=== PATIENT | male | born 1975 | race Caucasian/White ===

== ENCOUNTER 2017-03-17 22:17 | Emergency (ER) | payer OTHER ==
[~2017-03-17] VITALS: Ht 177.8 cm; Wt 125.0 kg
[~2017-03-17 22:17] MED LIST: CEPH-512 PO; GABA600T2 PO; HYDR-3740 PO; OMEP20CA11 PO
[2017-03-17 22:33] VITALS: BP 138/83; PULSE 93; RESP 16; O2SAT 97
--- NOTE | 2017-03-17 23:42 | ED.REPORT ---
HPI-Extremity Problem Upper Date of Service Mar 17, 2017 ED Provider: Nathen Jones DO A 41 year old male with a history of diabetes, neuropathy, sleep apnea and sarcoidosis presents to the ED complaining of right hand pain. The pt dropped plates two days ago and hit his hand against the table trying to catch them. He has since experienced increasing right hand and wrist pain and swelling. The pt also complains of right leg and foot swelling. The swelling is accompanied by a rash on the affected areas. He has been experiencing these symptoms for several weeks and has been seen in the ED and by his PCP. He has been diagnosed with cellulitis and prescribed Vancomycin, Keflex and Clindamycin without significant relief. The pt has been elevating his leg but has not been wearing compression stockings. He recently noticed that his left leg is beginning to appear swollen. The pt denies history of DVT and recently had a negative echocardiogram. He has also been tested with recent LE duplex that returned negative. He has been treated the rash inconsistency with cautious amounts of triamcinolone and has a referral to see dermatology. Nursing Notes Stated Complaint: RT HAND SWELLING, RT/LT LEG SWELLING Chief Complaint: Extremity Trauma Nursing Notes Reviewed: Yes Allergies: Coded Allergies: yellow dye (Verified Allergy, Unknown, 03/17/17) Scheduled Cephalexin (Keflex) 500 Mg Capsule 500 MG PO QID Clobetasol Propionate (Clobetasol Propionate) 15 Gm Oint...g. 60 GM TP BID Gabapentin (Gabapentin) 600 Mg Tablet 1,200 MG PO TID Omeprazole (Omeprazole) 20 Mg Capsule.dr 20 MG PO DAILY Scheduled PRN Hydrocodone-Acetaminophen 10-325 mg (Hydrocodone-Acetaminophen 10-325 mg) 1 Each Tablet 1 TABLET PO Q6H PRN PRN For Pain General Time Seen by MD: 23:08 Chief Complaint Hand injury right Hx Obtained From: Patient Arrived By: Walk-in Onset Occurred: 2 days ago Recent Healthcare: No recent hospitalization, Recent doctor visit Similar Sx Previous: No Past Medical History Past Medical History Diabetes Mellitus Neuropathy Testicular Cancer Sarcoidosis Sleep apnea Past Surgical History None reported Smoking History Current Every Day Smoker Social History Alcohol Use: Denies alcohol use Drug Use: THC Other Social History: Good social support, From out of town Ambulatory Status Independent Review of Systems Musculoskeletal: Reports: Extremity pain, Extremity swelling, Denies: Neck pain Skin: Reports Rash Complete sys rev & neg: except as marked. Respiratory: Denies: Non-productive cough, Shortness of breath Cardiovascular: Denies: Chest pain GI: Denies: Abdominal pain, Nausea, Vomiting Physical Exam Initial Vital Signs Vital Signs (First) Date Time Temp Pulse Resp B/P Pulse Ox O2 Delivery O2 Flow Rate FiO2 03/17/17 22:33 37.1 93 16 138/83 97 Room Air Initial VS: Reviewed General/Constitutional: Awake, Alert Neck: Atraumatic, Supple, Full range of motion Respiratory / Chest: Atraumatic, Breath sounds NL, Breath sounds = bilat, No respiratory distress Cardiovascular: Heart rate NL, Regular rhythm, Heart sounds NL Upper Extremity / MS: Atraumatic, Full range of motion Wrist / Hand: Atraumatic, Full range of motion Skin: Atraumatic, Color NL, Warm, Dry Rash / Lesion Notes: thickened patches of skin, dry and flakey on erythemetous base over bilateral lower extremites. 1+pitting edema bilaterally. No areas of drainage, tenderness or warmth. No obvious evidence of cellulitis. Neurologic: Oriented X3, Speech NL, No motor deficits, No sensory deficits Head / Eyes: Atraumatic, Normocephalic, PERRL, EOMI ENT: Atraumatic, Airway patent, Mucous membranes moist Abdomen: Atraumatic, Soft, Non-tender Back: Atraumatic, Full range of motion Lower Extremity / Pelvis / MS: Atraumatic, Full range of motion Psychiatric: Affect NL, Mood NL Interpretation & Diagnostics X-Ray Interpretation Xray Interpretation: minimally displaced boxer's fracture at base of fifth metacarpal X-Ray Ordered: Hand right Interpretation / Wet Read by: Interpret - ED physician Xray Interpretation: minimally displaced boxer's fracture at base of fifth metacarpal X-Ray Ordered: Wrist right Interpretation / Wet Read by: Interpret - ED physician Procedures Splint Application - Fx Mgt Time: 23:50 Procedure Performed by: ED physician, Pick Out Hand, Under my direct supervis Precise Anatomic Location: right hand/wrist Type of Immobilization: Ulnar gutter Definitive Fracture Care: Splint Post-Procedure / Complications: Cap refill normal, Post splint vascular nl, Post splint neuro nl, Condition improved, Tolerated procedure well, Patient stable Re-Eval/Medical Decision Med Decision/Clinical Course Boxers fracture with routine splint and ortho referral as above. I do not believe his exam is consistent with cellulitis but rather psoriasis or eczematous condition. Stronger steroid rx (clobetasol) given with instructions to f/u with pcp next week. Also advised him okay to use generously with occlusive dressing as long as not used more than 2 weeks at a time. Compression stocking also encouraged to combat the swelling. Source of Hx: Old records Re-Evaluation/Progress : Time of Eval: 23:55 Patient Status: Condition improved Re-Evaluation/Progress Note: Pt rechecked, who is resting comfortably. Radiology results, diagnosis and plan for discharge are discussed. The pt understands and agrees with the plan. All questions are addressed at this time. Counseled Regarding: Diagnosis, Lab results, Need for follow-up, When/why to return to ED Discharge & Departure Impression: Primary Impression: Boxer's fracture Encounter type: initial encounter Fracture type: closed Qualified Code: S62.309A - Unspecified fracture of unspecified metacarpal bone, initial encounter for closed fracture Additional Impression: Dermatitis of lower extremity Disposition: Home Discharge Condition All VS Reviewed: Yes Condition: Stable Patient Instructions: Boxer Fracture (ED), Dermatitis (ED), Splint Care (ED) Additional Instructions: Thank you for allowing us to be a part of your care. Take your hydrocodone as directed for pain. Wear the splint until you are seen in follow up. Call orthopedics in the morning to arrange a follow up appointment next week. Apply the steroid cream generously twice daily for two weeks. Call your primary care physician to arrange a follow up appointment next week. Return to the emergency department if you develop any new or worsening symptoms. Referrals: Jolanta Tobin DO (PCP) Abdoul Garcia DO Scribe Attestation Portions of this note were transcribed by Su Wood. I, Dr. Jones personally performed the history, physical exam and medical decision-making; I reviewed and confirmed the accuracy of the information in the transcribed note. copies to: Abdoul Garcia DO; Jolanta Tobin Gary R DO Mar 17, 2017 23:41 SU WOOD Mar 17, 2017 23:54
[2017-03-18] MEDS ORDERED: CLOB15OI2 TP (00:05)
--- NOTE | 2017-03-18 07:36 | DRSVH ---
PROCEDURE: X-RAY RIGHT WRIST COMPLETE, MINIMUM THREE VIEWS ([id number]) INDICATIONS: 41-year-old male with ulnar-sided wrist pain after injury yesterday. TECHNIQUE: 4 views of the wrist were acquired. COMPARISON: None. FINDINGS: Bones: There is cortical irregularity of the fifth metacarpal base. Other bones appear intact. No rondon spicious bony lesions. Scaphoid view: Scaphoid appears intact. Soft tissues: No suspicious soft tissue calcifications. IMPRESSION: Findings suspicious for a mildly displaced fifth metacarpal base fracture. Dictated by: Max Soto M.D. on 03/18/2017 at 7:32 Approved by: Max Soto M.D. on 03/18/2017 at 7:33
--- NOTE | 2017-03-18 07:38 | DRSVH ---
PROCEDURE: X-RAY RIGHT HAND, MINIMUM THREE VIEWS ([id number]) INDICATIONS: 41 year-old male with right hand and wrist injury yesterday. TECHNIQUE: 4 views of the hand(s) acquired. COMPARISON: [facility], CR, XR WRIST 3VW RT, 03/17/2017, 22:52. FINDINGS: Bones: There is mildly displaced oblique intra-articular fracture of the fifth metacarpal base. Other bones appear intact. Carpal bones are normally aligned. No suspicious bony lesions. Soft tissues: No suspicious soft tissue calcifications. IMPRESSION: Mildly displaced oblique intra-articular fracture of the fifth metacarpal base. Dictated by: Max Soto M.D. on 03/18/2017 at 7:34 Approved by: Max Soto M.D. on 03/18/2017 at 7:35
[2017-03-23] MEDS ORDERED: HYDR-3740 PO (15:16)
[2017-03-23] MEDS ORDERED: ALBU8.5H2 INHALATION (15:16)
[2017-03-23] MEDS ORDERED: humalog (15:16)
[2017-03-23] MEDS ORDERED: LACT70CA PO (15:30)
[2017-03-23] MEDS ORDERED: L. A1CAP7 PO (15:30)
== END 2017-03-18 01:35 | disposition home or self-care (01) ==
LOC: SED 22:23
DX: S62.312A Displaced fracture of base of third metacarpal bone, right hand, initial encounter for closed fracture (principal); L30.9 Dermatitis, unspecified; W22.8XXA Striking against or struck by other objects, initial encounter; Y93.9 Activity, unspecified; Y92.9 Unspecified place or not applicable; Y99.8 Other external cause status; E11.40 Type 2 diabetes mellitus with diabetic neuropathy, unspecified; Z85.47 Personal history of malignant neoplasm of testis; F17.200 Nicotine dependence, unspecified, uncomplicated

== ENCOUNTER 2017-03-29 10:02 | Day surgery (SDC) | payer OTHER ==
[2017-03-29] VITALS (9 sets, daily range): BP systolic 112–139; BP diastolic 55–90; PULSE 70–96; RESP 14–18; O2SAT 92–99
[~2017-03-29] VITALS: Ht 180.3 cm; Wt 122.9 kg
[~2017-03-29 10:02] MED LIST changes: +ALBU8.5H2 INHALATION; -CEPH-512 PO; +CeFAZolin 2 Gm/50 mL D5W IV Premix IV ONE; +L. A1CAP7 PO; +Lactated Ringer's 1,000 ML IV SCH; +humalog
[2017-03-29] MEDS ORDERED: EPHEDrine/NS 5 mg/mL 5 mL Syringe ONE (10:03)
[2017-03-29] MEDS ORDERED: HYDROmorphone 1 mg/mL Inj ONE (10:03)
[2017-03-29] MEDS ORDERED: Lidocaine PF 1% 30 mL Inj ONE (10:03)
[2017-03-29] MEDS ORDERED: fentaNYL-PF 50 mCg/mL 2 mL Inj ONE (10:03)
[2017-03-29] MEDS ORDERED: Ondansetron 2 mg/mL 2 mL Inj ONE (10:03)
[2017-03-29] MEDS ORDERED: MetoCLOpramide 5 mg/mL 2 mL Inj ONE (10:03)
[2017-03-29] MEDS ORDERED: Phenylephrine/NS 100 mCg/mL 10 mL Syringe IVPUSH ONE (10:03)
[2017-03-29] MEDS ORDERED: Propofol 10,000 mCg/mL 20 mL Inj ONE (10:03)
[2017-03-29] MEDS ORDERED: Lactated Ringer's 1,000 ML IV ONE ×2 (11:00→13:43)
[2017-03-29] MEDS ORDERED: CeFAZolin 2 Gm/50 mL D5W Duplex Bag IV ONE (11:16)
[2017-03-29] MEDS ORDERED: oxyCODONE-Acetamin 5-325 mg Tablet PO PRN (11:20)
[2017-03-29] MEDS ORDERED: Lidocaine 1%-Epi 1:100,000 20 mL Inj INJ ONE (11:54)
[2017-03-29] MEDS ORDERED: Lactated Ringer's 500 ML IV PRN (12:03)
[2017-03-29] MEDS ORDERED: Lactated Ringer's 1,000 ML IV SCH (12:03)
--- NOTE | 2017-03-29 12:03 | PCM.HPANE ---
Patient Data Surgeon Admitting Provider: Attending Provider:Wilmer Munroe DO Primary Care Physician:Jolanta Tobin DO Other Provider:Dominguez Valentino Anesthesia Reason for Visit Right 5TH Metacarpal Base Fracture Ht/WT & BMI Height (Feet): 5 Height (Inches): 10 Weight (Kilograms): 124.6 Body Mass Index 39.00 Allergies Coded Allergies: yellow dye (Verified Allergy, Severe, Yellow dye in pills causes hives and rash, 03/23/17) Past Anesthesia History Anesthesia History: Denies:: Abnormal Airway, Anesthesia Reactions, Difficult Intubation, Fam Anesthesia Reaction, Fam Malignant Hypertherm, Malignant Hyperthermia Diabetes History Hx Diabetes?: Yes Type of Diabetes: Type II Glycemic Control: Insulin Dependent MRSA MRSA: No Medications Reported Medications L. Acidophilus/Bifid. Animalis (Probiotic 5 Billion Cell Cap)1 Each Cap.[email or web address] Each PO 03/23/17 Albuterol HFA (Proair HFA)8.5 Gm Hfa.aer.ad2 Puffs INHALATION Q4H #1 INHALER 03/23/17 Hydrocodone-Acetaminophen 10-325 mg 1 Each Tablet1 Tablet PO Q6H PRN For Pain Ref 0 03/23/17 [humalog ] 70/30 No Conflict CheckUnknown Dose BID PRN blood glucose 03/23/17 Omeprazole 20 Mg Capsule.dr20 Mg PO DAILY Ref 0 01/21/17 Gabapentin 600 Mg Tablet1,200 Mg PO TID Ref 0 01/21/17 Discontinued Reported Medications Lactobac No.41/Bifidobact No.7 (Probiotic-10 3 Billion Cell Cp)70 Mg (3 Billion Cell) [id number] Mg PO 03/23/17 Hydrocodone-Acetaminophen 10-325 mg 1 Each Tablet1 Tablet PO Q6H PRN For Pain Ref 0 03/23/17 Hydrocodone-Acetaminophen 10-325 mg 1 Each Tablet1 Tablet PO Q6H PRN For Pain Ref 0 01/21/17 Discontinued Scripts Clobetasol Propionate 15 Gm Oint...g.60 Gm TP BID #4 TUBE Prov:Nathen Jones DO 03/18/17 Cephalexin (Keflex)500 Mg [id number] Mg PO QID #40 CAPSULE Ref 0 Prov:Abdoul Ramos DO 01/21/17 History History of ENT Problems?: No HEENT History: Denies:: Abnormal Airway Cataracts Difficult Intubation Dysphagia Glaucoma Hearing Problem Sinus Problem TMJ Denture Type: None Teeth Condition: Within Normal Limits Hx of Heart Problems?: No Cardiovascular History: Positive for:: Edema (ankles) Denies:: Abdominal Aortic Aneurism Atrial Fibrillation Cardiac Surgery Chest Pain Congestive Heart Failure Coronary Artery Disease Heart Murmur Hypertension Irregular Heartbeat Peripheral Vascular Rheumatic Fever Thrombophlebitis Valvular Heart Disease Hx of Respiratory Problem?: Yes Respiratory History: Positive for:: Asthma Pneumonia (2016) Use of Inhalers / NEBS (Albuterol) Denies:: COPD Chest Surgery Cough Dyspnea Emphysema Hemoptysis Pulmonary Embolism Tuberculosis Use of C-PAP Machine Hx Neurologic Problems?: Yes Neurological History: Positive for:: Dizziness Headaches Denies:: Alzheimer's Disease CVA Dementia Multiple Sclerosis Parkinson's Disease Seizures TIA Hx of GI Problems?: Yes Hx of Problems?: No Male Hx: Positive for:: Testicular Surgery (testicular cancer) Denies:: Prostate Problems Scrotal Mass Skin History: Positive for:: History Skin Disorders? (leaking rash pososibly from Sarcoidosis) Denies:: Pressure Ulcers Hx Musculoskeletal Problems?: No Musculoskeletal History: Positive for:: Back Injury (three lower back disc missing since ) Fibromyalgia Denies:: Degenerative Joint Joint Replacement Musculoskeletal Trauma Myasthenia Gravis Osteoarthritis Rheumatoid Arthritis Systemic Lupus Hx of Psycho/Social Problems?: No Hx Surgeries?: Yes (Testicular surgery) Hx Any Other Health Problems?: Yes Other History: Positive for:: Cancer (testiclular) Hospitalization (01/21/17 dizzyness and fever) Thyroid Disease (has allergies to thyroid meds) History Blood Transfusions: Positive for:: Accept Blood Products? Denies:: Blood Transfuse Reaction Blood Transfusions Hx Diabetes: Yes Hx Alcohol Use: NoHx Substance Use: Yes (CBD pill for pain control) Smoking Status: Current Every Day Smoker Have You Smoked inLast 12 mo: YesApprox How Many Cigarettes/day: 10 Stop/Bang S-Snoring: Do You Snore Loudly: Yes T-Tired: feel tired, fatigued: No O-Obsered: Observed not breath: No P-Blood Pressure: treated: No B- Body Mass Index > 35 kg/m2: Yes A- Age over 50: No N- Neck Large Circumference: Yes G- Gender Male: Yes CRYS Total Score: 4 CRYS Risk Assessment: High Risk, =/>3 Yes CRYS Category 4 OutPt Procedure: Yes Risk Assessment Category Category 1A: Patient has history of documented sleep apnea, and HAS NOT received any narcotic, sedative or anesthesia administration during this stay. Category 1B: Patient has history of documented sleep apnea, and HAS received any narcotic , sedative or anesthesia administration during this stay Category 2: Patient has SUSPECTED Obstructive Sleep Apnea, and HAS received any narcotic , sedative or anesthesia administration during this stay. Category 3: Patient has SUSPECTED Obstructive Sleep Apnea and HAS NOT received narcotic, sedative or anesthesia administration during this stay. Category 4: Outpatient in Procedural Areas with known sleep apnea or who screen positive for High Risk via the STOP/BANG questionnaire. Exam Exam General Appearance: Alert HEENT/AIRWAY: MP 3, Neck Movement (from, 3 fb) Lungs: Clear to Auscultation Heart: Regular Rate/Rhythm Plan Impression Patient chart reviewed, patient interviewed and anesthestic plan with risks, benefits, and alternatives discussed, and informed consent obtained. NPO per Anesth. Guidelines: Yes ASA Physical Status: ASA2 Mod Systemic Disease Anesthetic Plan: GA Bene/Risks/Altern/Consents: Yes HP Complete Prior to Induction: Yes Anish Lee MD Mar 29, 2017 10:01
[2017-03-29] MEDS ORDERED: Phenylephrine 10,000 mCg/mL Inj IVPUSH PRN (12:05)
[2017-03-29] MEDS ORDERED: EPHEDrine Sulfate 50 mg/mL Inj IVPUSH PRN (12:05)
[2017-03-29] MEDS ORDERED: HYDROmorphone 1 mg/mL Inj IVPUSH PRN (12:05)
[2017-03-29] MEDS ORDERED: MetoCLOpramide 5 mg/mL 2 mL Inj IVPUSH PRN (12:05)
[2017-03-29] MEDS ORDERED: Ondansetron 2 mg/mL 2 mL Inj IVPUSH PRN (12:05)
[2017-03-29] MEDS ORDERED: Dexamethasone 4 mg/mL Inj IVPUSH PRN (12:05)
[2017-03-29] MEDS ORDERED: fentaNYL-PF 50 mCg/mL 2 mL Inj IVPUSH PRN (12:05)
--- NOTE | 2017-03-29 13:46 | OP ---
[address] [id number] OPERATIVE REPORT PATIENT: HARSHAD FALLON : 1975 MR#: [id number] ADMIT: 03/29/2017 JOB ID: [id number] DATE OF SURGERY: 03/29/2017 PREOPERATIVE DIAGNOSIS(ES): Right 5th metacarpal base fracture. POSTOPERATIVE DIAGNOSIS(ES): Right 5th metacarpal base fracture. PROCEDURE: Open reduction, internal fixation right 5th metacarpal base fracture. SURGEON: Wilmer Munroe D.O. ANESTHESIA: General. HISTORY: The patient is a pleasant 41-year-old male that dropped a pile of plates and tried to reach down to grab it and instead punched the table. He immediately had pain and swelling to the hand, was seen at an outlying facility. He was diagnosed with a right 5th metacarpal base intra-articular displaced fracture. Repeat radiographs were obtained at his first followup with me, demonstrated further displacement of the dorsal radial fragment likely from the pull of the extensor carpi ulnaris. Due to displacement I discussed with the patient the risks, benefits, and indications to proceed with an open reduction internal fixation right 5th metacarpal base fracture. He understood the risks include, but not limited to, neurovascular injury, tendon injury, infection, failure of fixation, stiffness, persistent pain, all of which may require further intervention. The patient had all questions answered. Consent was signed and placed in the chart. PROCEDURE IN DETAIL: The patient was brought to the operative suite and placed supine on the operating table. Surgical time-out was performed. Everyone in the room was in agreement. After appropriate anesthesia was obtained, the right upper arm tourniquet was applied and the right upper extremity was prepped and draped in a sterile fashion. Right upper extremity was exsanguinated and tourniquet inflated to 250 mmHg. A longitudinal incision was made just radial to the 5th metacarpal extending proximal from the shaft to the 5th CMC joint. Dissection was carried down to the extensor tendons and the extensor tendons including the common digiti minimi were retracted radially. The periosteum was then incised revealing the comminuted intra-articular 5th metacarpal base fracture. Utilizing K-wires, the fracture was then manually reduced and held provisionally. This was followed by application of a 2.0 mm Synthes short T plate. The plate was first affixed utilizing a nonlocking screw within an oblong hole of the plate to pull the plate to the dorsal cortex of the 5th metacarpal. Locking screws were used to capture the two main fracture fragments that were intra-articular including the fragment that was displaced by the extensor carpi ulnaris pull. Completion of fixation was performed in the shaft utilizing a combination of locking and nonlocking screws. A 2-0 Vicryl was placed through the extensor carpi ulnaris to further add additional fixation of the dorsal ulnar fragment and sutured to the plate. Further irrigation was performed followed by closure of the periosteum with 4-0 Vicryl and a running 4-0 nylon for the skin. The patient was then placed in a well-padded, well-molded ulnar gutter splint. ESTIMATED BLOOD LOSS: Less than 1 cc. COMPLICATIONS: None. DISPOSITION: The patient tolerated the procedure well. Anesthesia was reversed. The patient was transferred to the PACU for recovery. IMPLANTS: A 2.0 mm Synthes short T plate from a modular locking handset. POSTOPERATIVE PLAN: The patient will followup with occupational therapy to be transitioned into an ulnar gutter brace. He is to then start working on gentle range of motion of the hand. His followup is in two weeks in my office for suture removal and for repeat radiographs.
--- NOTE | 2017-03-29 13:47 | PCM.ANEP1 ---
Post Anesthesia PACU Phase 1 Assessment Vital Signs Vital Signs Date Time Temp Pulse Resp B/P Pulse Ox O2 Delivery O2 Flow Rate FiO2 03/29/17 13:30 92 18 117/55 92 Room Air 03/29/17 13:15 95 14 121/62 93 Room Air 03/29/17 13:10 96 15 134/73 92 Room Air 03/29/17 13:05 36.5 88 14 112/63 94 Room Air 03/29/17 11:00 36.2 82 18 139/90 99 Room Air Anesthetic Administered: GA Level of Alertness: Awake, talking LADD's with Equal Strength: Yes Pain: No Nausea or Vomiting: No CV Function & Hydration Stable: Yes Airway Device: Oxygen Delivery: Simple Mask Lungs: Clear to Auscultation Dermatome Level: Full Sensation PACU Phase 2 Assessment Complications: No Follow up Care: N/A Patient Instructions Provided: N/A Anish Lee MD Mar 29, 2017 13:47
== END 2017-03-29 23:59 | disposition home or self-care (01) ==
LOC: SAS 10:02
PROVIDERS: ATTEND Orthopaedic Surgery
DX: S62.316A Displaced fracture of base of fifth metacarpal bone, right hand, initial encounter for closed fracture (principal); R60.9 Edema, unspecified; J45.909 Unspecified asthma, uncomplicated; R42 Dizziness and giddiness; R51 Headache; M79.7 Fibromyalgia; F17.210 Nicotine dependence, cigarettes, uncomplicated; W22.8XXA Striking against or struck by other objects, initial encounter; Y93.9 Activity, unspecified; Y92.020 Kitchen in mobile home as the place of occurrence of the external cause; Y99.9 Unspecified external cause status; Z79.899 Other long term (current) drug therapy
CPT/HCPCS: 26615; 76000; C1713; J0690; J1170; J2370; J2405; J2704; J2765; J3010; J7120

== ENCOUNTER → 2017-04-19 | Day surgery (SDC) | payer OTHER ==
[~2017-04-19] VITALS: Ht 177.8 cm; Wt 125.0 kg
[2017-04-19] VITALS (11 sets, daily range): BP systolic 105–130; BP diastolic 64–80; PULSE 82–93; RESP 9–16; O2SAT 92–96
[~2017-04-19] MED LIST changes: +Albuterol-Ipratropium 3 mL Inhalation Solution NEB PRN; +Atropine 0.4 mg/mL Inj IVPUSH PRN; +CEPH-512 PO; +CLIN-77 PO; -CeFAZolin 2 Gm/50 mL D5W IV Premix IV ONE; +CeFAZolin Inj 3 GM in IV Premix 1 EACH IV ONE; +Dexamethasone 4 mg/mL Inj ONE; +EPHEDrine Sulfate 50 mg/mL Inj IVPUSH PRN; +EPHEDrine/NS 5 mg/mL 5 mL Syringe ONE; +HYDROmorphone 1 mg/mL Inj IVPUSH PRN; +Labetalol 5 mg/mL 20 mL Inj IV PRN; +Lactated Ringer's 1,000 ML IV ONE; +Lactated Ringer's 500 ML IV PRN; +Lidocaine 1%-Epi 1:100,000 20 mL Inj INFILTRATE ONE; +MetoCLOpramide 5 mg/mL 2 mL Inj IVPUSH PRN; +OXYC-465 PO; +Ondansetron 2 mg/mL 2 mL Inj IVPUSH PRN; +Ondansetron 2 mg/mL 2 mL Inj ONE; +Phenylephrine 10,000 mCg/mL Inj IVPUSH PRN; +Phenylephrine 10,000 mCg/mL Inj ONE; +fentaNYL-PF 50 mCg/mL 2 mL Inj IVPUSH PRN; +fentaNYL-PF 50 mCg/mL 2 mL Inj ONE; +oxyCODONE-Acetamin 5-325 mg Tablet PO PRN
--- NOTE | 2017-04-19 11:52 | PCM.HPANE ---
Patient Data Surgeon Admitting Provider: Attending Provider:Wilmer Munroe DO Primary Care Physician:Jolanta Tobin DO Other Provider:Dominguez Valentino Anesthesia Reason for Visit Right 5TH Metacarpal Base Fx,Hardware Failure Ht/WT & BMI Height (Feet): 5 Height (Inches): 10 Weight (Kilograms): 125 Body Mass Index 39.00 Allergies Coded Allergies: yellow dye (Verified Allergy, Severe, Yellow dye in pills causes hives and rash, 03/23/17) Past Anesthesia History Anesthesia History: Denies:: Abnormal Airway, Anesthesia Reactions, Difficult Intubation, Fam Anesthesia Reaction, Fam Malignant Hypertherm, Malignant Hyperthermia Diabetes History Hx Diabetes?: Yes Type of Diabetes: Type II Glycemic Control: Insulin Dependent MRSA MRSA: No Medications Home Meds Incl Beta Breanne: No Reported Medications L. Acidophilus/Bifid. Animalis (Probiotic 5 Billion Cell Cap)1 Each Cap.sprink2 Each PO 03/23/17 Albuterol HFA (Proair HFA)8.5 Gm Hfa.aer.ad2 Puffs INHALATION Q4H #1 INHALER 03/23/17 Hydrocodone-Acetaminophen 10-325 mg 1 Each Tablet1 Tablet PO Q6H PRN For Pain Ref 0 03/23/17 [humalog ] 70/30 No Conflict CheckUnknown Dose BID PRN blood glucose 03/23/17 Omeprazole 20 Mg Capsule.dr20 Mg PO DAILY Ref 0 01/21/17 Gabapentin 600 Mg Tablet1,200 Mg PO TID Ref 0 01/21/17 History History of ENT Problems?: No HEENT History: Denies:: Abnormal Airway Cataracts Difficult Intubation Dysphagia Hearing Problem Sinus Problem TMJ Denture Type: None Teeth Condition: Missing Teeth Hx of Heart Problems?: No Cardiovascular History: Positive for:: Edema (ankles) Denies:: Abdominal Aortic Aneurism Atrial Fibrillation Cardiac Surgery Chest Pain Congestive Heart Failure Heart Murmur Hypertension Irregular Heartbeat Rheumatic Fever Thrombophlebitis Valvular Heart Disease Hx of Respiratory Problem?: Yes Respiratory History: Positive for:: Asthma Pneumonia (2016) Denies:: COPD Chest Surgery Cough Dyspnea Emphysema Hemoptysis Pulmonary Embolism Tuberculosis Use of C-PAP Machine Hx Neurologic Problems?: Yes Neurological History: Positive for:: Dizziness Headaches Denies:: Alzheimer's Disease CVA Dementia Multiple Sclerosis Parkinson's Disease Seizures Hx of GI Problems?: Yes Hx of Problems?: No Male Hx: Positive for:: Testicular Surgery (testicular cancer) Denies:: Prostate Problems Scrotal Mass Skin History: Positive for:: History Skin Disorders? (leaking rash pososibly from Sarcoidosis) Denies:: Pressure Ulcers Hx Musculoskeletal Problems?: No Musculoskeletal History: Positive for:: Back Injury (three lower back disc missing since ) Denies:: Degenerative Joint Joint Replacement Musculoskeletal Trauma (hardware failure right metacarpal fx- admission problem) Systemic Lupus Hx of Psycho/Social Problems?: No Hx Surgeries?: Yes (Testicular surgery) Hx Any Other Health Problems?: Yes Other History: Positive for:: Cancer (testiclular) Hospitalization (01/21/17 dizzyness and fever) Thyroid Disease (has allergies to thyroid meds) History Blood Transfusions: Denies:: Blood Transfuse Reaction Blood Transfusions Hx Diabetes: Yes Hx Alcohol Use: NoHx Substance Use: Yes (CBD pill for pain control) Smoking Status: Current Every Day Smoker Have You Smoked inLast 12 mo: Yes Stop/Bang S-Snoring: Do You Snore Loudly: Yes T-Tired: feel tired, fatigued: No O-Obsered: Observed not breath: No P-Blood Pressure: treated: No B- Body Mass Index > 35 kg/m2: Yes A- Age over 50: No N- Neck Large Circumference: Yes G- Gender Male: Yes CRYS Total Score: 4 Risk Assessment Category Category 1A: Patient has history of documented sleep apnea, and HAS NOT received any narcotic, sedative or anesthesia administration during this stay. Category 1B: Patient has history of documented sleep apnea, and HAS received any narcotic , sedative or anesthesia administration during this stay Category 2: Patient has SUSPECTED Obstructive Sleep Apnea, and HAS received any narcotic , sedative or anesthesia administration during this stay. Category 3: Patient has SUSPECTED Obstructive Sleep Apnea and HAS NOT received narcotic, sedative or anesthesia administration during this stay. Category 4: Outpatient in Procedural Areas with known sleep apnea or who screen positive for High Risk via the STOP/BANG questionnaire. Exam Exam Vital Signs Vital Signs Date Time Temp Pulse Resp B/P Pulse Ox O2 Delivery O2 Flow Rate FiO2 04/19/17 10:12 36.6 82 16 130/80 96 Room Air General Appearance: Alert, Oriented X3, Cooperative, No Acute Distress HEENT/AIRWAY: MP 2, Neck Movement (FROM), Mouth Opening (3 FBMO) Lungs: Clear to Auscultation, Normal Air Movement Heart: Exam Unremarkable, Regular Rate/Rhythm, No Murmurs/Rubs/Gallops Meds/Labs/Diagnostics Admission Meds Current Medications Lactated Ringer's (Lr) 1,000 ml @ ud STK-MED ONCE IV Last administered on 04/19t 10:17; Start 04/19/17 at 10:17; Stop 04/19/17 at 10:18; Status DC Plan Impression Patient chart reviewed, patient interviewed and anesthestic plan with risks, benefits, and alternatives discussed, and informed consent obtained. NPO per Anesth. Guidelines: Yes ASA Physical Status: ASA2 Mod Systemic Disease Anesthetic Plan: GA Bene/Risks/Altern/Consents: Yes HP Complete Prior to Induction: Yes Abdoul Bravo MD Apr 19, 2017 10:48
--- NOTE | 2017-04-19 18:21 | PCM.ANEP1 ---
Post Anesthesia PACU Phase 1 Assessment Vital Signs Vital Signs Date Time Temp Pulse Resp B/P Pulse Ox O2 Delivery O2 Flow Rate FiO2 04/19/17 14:00 87 16 105/71 93 Room Air 04/19/17 13:49 88 16 112/67 96 Room Air 04/19/17 13:40 90 12 115/66 94 Room Air 04/19/17 13:30 36.6 91 14 106/68 95 Room Air 04/19/17 13:25 91 12 115/69 93 Room Air 04/19/17 13:15 91 11 118/69 96 Blow-By 04/19/17 13:10 92 14 122/69 96 Blow-By 04/19/17 13:05 93 12 120/65 94 Blow-By 04/19/17 13:00 93 16 115/64 92 Room Air 04/19/17 12:58 36.6 92 9 117/66 92 Room Air Anesthetic Administered: GA Level of Alertness: Awake, talking LADD's with Equal Strength: Yes Pain: No Nausea or Vomiting: No CV Function & Hydration Stable: Yes Airway Device: na Oxygen Delivery: Room Air Lungs: Clear to Auscultation, Normal Air Movement Dermatome Level: Full Sensation PACU Phase 2 Assessment Complications: No Follow up Care: N/A Patient Instructions Provided: N/A Abdoul Bravo MD Apr 19, 2017 18:21
--- NOTE | 2017-04-20 08:00 | OP ---
[address] [address] OPERATIVE REPORT PATIENT: HARSHAD FALLON : 1975 MR#: [id number] ADMIT: 04/19/2017 JOB ID: [id number] DATE OF SURGERY: 04/19/2017 PREOPERATIVE DIAGNOSIS(ES): Failure of hardware fixation for a right fifth metacarpal intra-articular base fracture. POSTOPERATIVE DIAGNOSIS(ES): Failure of hardware fixation for a right fifth metacarpal intra-articular base fracture. PROCEDURE: 1. Revision open reduction and internal fixation of a right fifth metacarpal intra-articular base fracture. 2. Removal of deep hardware, consisting of a screw. SURGEON: Wilmer Munroe DO ANESTHESIA: General. 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 I discussed with the patient the risks, benefits, alternatives, and indications to proceed with open reduction and internal fixation of a right intra-articular fifth metacarpal base fracture. He underwent fixation about two and half weeks ago, and presented to his first followup with hardware failure, as the screw within the plate on the most proximal and ulnar fragment had backed out, and the fracture fragment had further displaced, he was seen by Tyson Gauthier PA-C, and then referred back to me for further evaluation and treatment. I discussed with the patient, due to the re-displacement, the risks, benefits, alternatives, and indications to proceed with a revision open reduction and internal fixation of the right fifth metacarpal-base fracture, with the possibility of hardware removal of the entire plate and revision versus just removing the screw, replacing the screw, and adding additional fixation with K-wires. He understood the risks to include, but not limited to, neurovascular injury, tendon injury, infection, failure of fixation, stiffness, or persistent pain, all of which may require further intervention. The patient had all questions answered. Consent was signed and placed in the chart. PROCEDURE IN DETAIL: The patient was brought to the operative suite and placed supine on the operating table. Surgical time-out was performed. Everyone in the room was in agreement. After appropriate anesthesia was obtained, a right upper arm tourniquet was applied, and the right upper extremity was prepped and draped in a sterile fashion. Right upper extremity was then exsanguinated, and tourniquet inflated to 250 mmHg. The patient's previous incision was approached. Dissection was carried down to the dorsal extensor tendons to the small fingers, which were retracted radially. The periosteum was incised and again elevated off of the plate. The fracture was well-visualized, and the loose screw was easily removed. Manual reduction was performed to the proximal ulnar-based fragment of the fifth metacarpal base utilizing [id number] reduction forceps. The fracture fragment was small; thus, the decision was made to hold the reduction with K-wires. One 0.035 and two 0.045 inch K-wires were advanced across the fracture fragment, into the fifth metacarpal shaft with the 0.035 inch K-wire. The 0.045 inch K-wire was advanced into the fourth metacarpal base and shaft for transmetacarpal pinning and additional fixation. With the fracture fragment reduced and verified under fluoroscopy, a new screw was placed after re-drilling, and a locking screw was placed within the proximal ulnar aspect of the plate. Final radiographic projections were obtained, verifying anatomic reduction and appropriate placement of the hardware. The K-wires were bent outside the skin and cut short. Copious irrigation was then performed. The periosteum closed back up with 4-0 Vicryl, and 4-0 Prolene was utilized in an interrupted fashion for the skin, as the patient had a little bit of a reaction with the previous nylon from his initial surgery. The patient was then placed into a well-padded, well-molded ulnar gutter splint. ESTIMATED BLOOD LOSS: Less than 5 cc. COMPLICATIONS: None. DISPOSITION: The patient tolerated the procedure well, anesthesia was reversed, and the patient was transferred back to recovery. SPECIMENS: A 10 mm screw that was removed and disposed of. IMPLANTS: One 0.035 inch K-wire and two 0.045 inch K-wires, with a new 10 mm screw placed back within the plate. POSTOPERATIVE PLAN: The patient will follow up with Occupational Therapy next week, and have his previous brace changed out so it is a short-arm brace, instead of an ulnar gutter brace, and can accommodate the pins. I will have him keep that brace on at all times. There will be no range of motion of the wrist for at least four weeks, but he can start working on range of motion of the fingers immediately.
== END | disposition home or self-care (01) ==
LOC: SAS 09:41
PROVIDERS: ATTEND Orthopaedic Surgery
DX: T84.038A Mechanical loosening of other internal prosthetic joint, initial encounter (principal); S62.316D Displaced fracture of base of fifth metacarpal bone, right hand, subsequent encounter for fracture with routine healing; E11.42 Type 2 diabetes mellitus with diabetic polyneuropathy; G89.4 Chronic pain syndrome; M79.7 Fibromyalgia; F17.210 Nicotine dependence, cigarettes, uncomplicated; Z79.4 Long term (current) use of insulin
CPT/HCPCS: 20680; 26685; C1713; J0690; J1100; J2370; J2405; J3010; J7120

== ENCOUNTER 2017-04-26 22:22 | Inpatient (IN) | payer OTHER ==
[~2017-04-26] VITALS: Ht 177.8 cm; Wt 125.0 kg
[~2017-04-26 22:22] MED LIST changes: -Albuterol-Ipratropium 3 mL Inhalation Solution NEB PRN; -Atropine 0.4 mg/mL Inj IVPUSH PRN; -CEPH-512 PO; -CLIN-77 PO; -CeFAZolin Inj 3 GM in IV Premix 1 EACH IV ONE; -Dexamethasone 4 mg/mL Inj ONE; -EPHEDrine Sulfate 50 mg/mL Inj IVPUSH PRN; -EPHEDrine/NS 5 mg/mL 5 mL Syringe ONE; -HYDROmorphone 1 mg/mL Inj IVPUSH PRN; -Labetalol 5 mg/mL 20 mL Inj IV PRN; -Lactated Ringer's 1,000 ML IV ONE; -Lactated Ringer's 1,000 ML IV SCH; -Lactated Ringer's 500 ML IV PRN; -Lidocaine 1%-Epi 1:100,000 20 mL Inj INFILTRATE ONE; -MetoCLOpramide 5 mg/mL 2 mL Inj IVPUSH PRN; -OXYC-465 PO; -Ondansetron 2 mg/mL 2 mL Inj IVPUSH PRN; -Ondansetron 2 mg/mL 2 mL Inj ONE; -Phenylephrine 10,000 mCg/mL Inj IVPUSH PRN; -Phenylephrine 10,000 mCg/mL Inj ONE; -fentaNYL-PF 50 mCg/mL 2 mL Inj IVPUSH PRN; -fentaNYL-PF 50 mCg/mL 2 mL Inj ONE; -oxyCODONE-Acetamin 5-325 mg Tablet PO PRN
[2017-04-26 22:29] VITALS: PULSE 113; RESP 24; O2SAT 95
[2017-04-26] MEDS ORDERED: 0.9% Sodium Chloride 1,000 ML IV ONE (23:08)
--- NOTE | 2017-04-26 23:08 | ED.REPORT ---
HPI-Hand Prob/Inj Date of Service Apr 26, 2017 ED Provider: Jagdish Newman MD The pt is a 41 y/o male with a hx of IDDM,fibromyalgia, cellulitis, and sarcoidosis who presents to the ED complaining of right hand pain, onset yesterday. He had a Boxer's fracture repair surgery by Dr. Munroe 3 weeks ago. He had another surgery a week ago for hardware failure. Associated sx include right hand erythema and swelling around the surgical site, purulent discharge from the surgical site, fever, chills, shaking, and 4 episodes of diarrhea today. He denies cough and mental status change. The pt is currently on antibiotics. The pt also reports blisters and a rash on the right foot. Nursing Notes Stated Complaint: POST OP INFECTION, FEVER Chief Complaint: General Complaint Nursing Notes Reviewed: Yes Allergies: Coded Allergies: yellow dye (Verified Allergy, Severe, Yellow dye in pills causes hives and rash, 03/23/17) pregabalin (Verified Allergy, Intermediate, Lesions and scabs to body, 04/26) Scheduled Albuterol HFA (Proair HFA) 8.5 Gm Hfa.aer.ad 2 PUFFS INHALATION Q4H Gabapentin (Gabapentin) 600 Mg Tablet 1,200 MG PO TID Omeprazole (Omeprazole) 20 Mg Capsule.dr 20 MG PO DAILY Scheduled PRN ([humalog ]) 70/30 Unknown Dose BID PRN PRN blood glucose Hydrocodone-Acetaminophen 10-325 mg (Hydrocodone-Acetaminophen 10-325 mg) 1 Each Tablet 1 TABLET PO Q6H PRN PRN For Pain Miscellaneous Medications L. Acidophilus/Bifid. Animalis (Probiotic 5 Billion Cell Cap) 1 Each Cap.sprink 2 EACH PO General Time Seen by Provider: 23:04 Chief Complaint Hand pain right Hx Obtained From: Patient Arrived By: Walk-in Onset Occurred: Yesterday Symptom Duration: Since onset Location: Right Hand: : Finger... (Little) Quality: Painful Radiation: Does not radiate Severity: Current: Severe Severity: Maximum: Severe Recent Healthcare: Recent doctor visit, Previous surgery Past Medical History Past Medical History Diabetes Mellitus Neuropathy Testicular Cancer Sarcoidosis Sleep apnea Past Surgical History Right hand x2 Smoking History Current Every Day Smoker Social History Alcohol Use: Denies alcohol use Drug Use: THC Other Social History: Good social support, From out of town Ambulatory Status Independent Review of Systems Reports: right hand erythema Reports: purulent discharge from the surgical site Reports: blisters and rash on the right foot Constitutional: Reports: Chills, Fever Musculoskeletal: Reports: Extremity pain (right hand), Extremity swelling ( right hand) Neurologic: Reports: Shaking Complete sys rev & neg: except as marked. Respiratory: Denies: Non-productive cough GI: Reports: Diarrhea Psychiatric: Denies: Change mental status Physical Exam Initial Vital Signs Vital Signs (First) Date Time Temp Pulse Resp B/P Pulse Ox O2 Delivery O2 Flow Rate FiO2 04/26/17 22:29 38.8 113 24 95 Room Air 04/27/17 01:20 126/65 Initial VS: Reviewed, Vital signs abnormal Head / Eyes: Atraumatic, Normocephalic Respiratory: Breath sounds normal, Clear to auscultation, No respiratory distress Cardiovascular: Regular rate & rhythm, Heart sounds normal, Intact distal pulses Abdomen / GI: Soft, Non-tender, No guarding, No rebound, No distention Skin: Warm, Dry, No cyanosis Neurologic: Alert, Oriented, Nonfocal Wrist / Hand: Neurologic intact, Vascular intact Tenderness and swelling at the surgical site on the right hand ulnar aspect. Purulent discharge from the surgical site. Distal aspect of right hand is neuro-vascularly intact. General/Constitutional: Awake, Alert, Cooperative Diaphoretic Cardiovascular: Regular rhythm, Heart sounds NL, No gallop, No murmurs, No rubs Heart Rate / Rhythm: Positive: Tachycardia Ankle / Foot: Full range of motion, No swelling, No deformity, Neurologic intact, Vascular intact Erythema and tenderness associated with the third, fourth and fifth toe of the right foot. Interpretation & Diagnostics Lab Results Interpretation Result Diagram: 04/26/17 2337 04/26/17 2337 Test 04/26/17 23:35 04/26/17 23:37 Urine Color Sheridan (YELLOW) Urine Appearance Clear (CLEAR,HAZY) Urine pH 5.5 (5.0-8.0) Urine Specific [place] 1.025 (1.003-1.035) Urine Protein >300mg/dL (NEG,TRACE) Urine Glucose (UA) Negativemg/dL (NEGATIVE) Urine Ketones Tracemg/dL (NEGATIVE) Urine Occult Blood Small (NEGATIVE) Urine Nitrite Negative (NEGATIVE) Urine Bilirubin Small (NEGATIVE) Urine Ictotest Positive (Negative) Urine Urobilinogen 1.0mg/dL (NORMAL) Urine Leukocyte Esterase Negative (NEGATIVE) Urine RBC 3-10/hpf (0-2) Urine WBC 0-5/hpf (0-5) Urine Epithelial Cells Occasional/hpf (NONE-MOD) Urine Crystals None seen (NONE SEEN) Urine Bacteria Few/hpf (NONE-FEW) Urine Hyaline Casts >20/lpf (NONE) Urine Granular Casts None seen (NONE SEEN) Urine Waxy Casts None seen (NONE SEEN) Urine Red Blood Cell Casts None seen (NONE SEEN) Urine White Blood Cell Casts None seen (NONE SEEN) Urine Mucus None seen (None Seen) Urine Trichomonas None seen (NONE SEEN) Urine Yeast None (NONE SEEN) Urinalysis Comment None Urine Culture Reflexed Not indicated White Blood Count 10.6th/mm3 (3.8-10.1) Red Blood Count 4.06mil/mm3 (4.40-5.80) Hemoglobin 12.9g/dL (13.8-17.2) Hematocrit 37.1% (41.0-50.0) Mean Corpuscular Volume 91.4fL (81-100) Mean Corpuscular Hemoglobin 31.8pg (27.0-35.0) Mean Corpuscular Hemoglobin Concent 34.8% (32.0-37.0) Red Cell Distribution Width 13.5% (12.3-15.4) Platelet Count 195bil/L (150-400) Neutrophils (%) (Auto) 74.0% (40-74) Lymphocytes (%) (Auto) 10.1% (14-46) Monocytes (%) (Auto) 14.9% (4-12) Eosinophils (%) (Auto) 0.7% (0-5) Basophils (%) (Auto) 0.1% (0-3) Sodium Level 138mEq/L (134-144) Potassium Level 4.3mEq/L (3.5-5.2) Chloride Level 96mEq/L (97-108) Carbon Dioxide Level 25mmol/L (18-29) Blood Urea Nitrogen 18mg/dL (6-24) Creatinine 1.05mg/dL (0.76-1.27) Estimat Glomerular Filtration Rate 83mL/min (>59) Glucose Level 183mg/dL (60-99) Lactic Acid Level 1.6mmol/L (0.4-2.0) Calcium Level 9.5mg/dL (8.5-10.1) Magnesium Level 1.7mg/dL (1.6-2.6) Total Bilirubin 1.1mg/dL (0.0-1.2) Aspartate Amino Transf (AST/SGOT) 14U/L (0-50) Alanine Aminotransferase (ALT/SGPT) 13U/L (0-44) Alkaline Phosphatase 99U/L (25-150) Troponin T 0.013ug/L (0.0-0.011) Total Protein 7.8g/dL (6.4-8.4) Albumin 3.9g/dL (3.4-5.0) Lab Results Interpretation: While he elevated white blood count, mildly elevated nonfasting glucose. ECG Interpretation ECG Interpretation: Sinus tachycardia. Rate 105. RBBB Time: 23:20 Interpreted by: ED physician Re-Eval/Medical Decision Med Decision/Clinical Course 41-year-old male with an infected right hand orthopedic repair with mild sepsis. Admitted for IV antibiotics and orthopedic management. Re-Evaluation/Progress #1: Time of Eval: 23:07 Re-Evaluation/Progress Note: Rechecked pt. Discussed lab results, diagnosis, and plan to admit. Pt understands and agrees with the plan for admission. All questions addressed. Re-Evaluation/Progress #2: Time of Eval: 23:14 Re-Evaluation/Progress Note: Culture from the surgical site obtained. Consultation #1: Referral / Consult Name: Kamari Gallardo MD Consulted With: Orthopedic Call Returned at: 00:21 Leach Cell Operator: Will see patient, Agrees with eval, Agrees with plan Consultation #2: Referral / Consult Name: Ventura Valadez MD Consulted With: Hospitalist Call Returned at: 00:26 Leach Cell Operator: Will see patient, Agrees with eval, Agrees with plan, Accepts admit Counseled Regarding: Diagnosis, Lab results, Need for admission Discharge & Departure Primary Impression: Post-operative infection Disposition: ADMITTED TO HOSPITAL Referrals: Jolanta Tobin DO (PCP) Scribe Attestation Portions of this note were transcribed by Lisa Vásquez. I,, personally performed the history,physical exam and medical decision-making;I reviewed and confirmed the accuracy of the information in the transcribed note. Signed by Jose Barrera. 04/26/17 copies to: Jolanta Tobin Howard L MD Apr 26, 2017 23:08 Lisa Vásquez Apr 26, 2017 23:20
[2017-04-26] MEDS ORDERED: Vancomycin Dose per Pharmacist XX ONE (23:10)
[2017-04-26] MEDS ORDERED: Clindamycin Inj 900 MG in IV Premix 1 EACH IV ONE (23:10)
[2017-04-26] MEDS ORDERED: Meropenem Inj 1,000 MG in 0.9% Sodium Chloride 100 ML IV ONE (23:10)
[2017-04-26] MEDS ORDERED: Vancomycin Inj 2,000 MG in 0.9% Sodium Chloride 500 ML IV ONE (23:45)
[2017-04-26 23:52] LABS: BASOPHILS % (AUTO) 0.1 % (0-3); EOSINOPHILS % (AUTO) 0.7 % (0-5); MONOCYTES % (AUTO) 14.9 % (4-12); Mean Corpuscular Hemoglobin 31.8 pg (27.0-35.0); Mean Corpuscular Volume 91.4 fL (81-100); Platelet Count 195 bil/L (150-400)
[2017-04-27] VITALS (15 sets, daily range): BP systolic 121–162; BP diastolic 65–94; PULSE 80–102; RESP 13–22; O2SAT 93–99
[2017-04-27 00:02] LABS: APPEARANCE,URINE CLEAR (CLEAR,HAZY); COLOR,URINE AMBER (YELLOW); OCCULT BLOOD,URINE SMALL (NEGATIVE); PH,URINE 5.5 (5.0-8.0)
[2017-04-27 00:03] LABS: ICTOTEST,URINE POSITIVE (Negative)
[2017-04-27] MEDS: HYDROmorphone 0.5 mg/0.5 mL iSecure Syringe IVPUSH PRN ×4 (00:06→05:47)
[2017-04-27 00:30] LABS: Magnesium 1.7 mg/dL (1.6-2.6); TROPONIN T 0.013 ug/L (0.0-0.011)
[2017-04-27] MEDS ORDERED: Polyethylene Glycol (PEG) 17 Gm Powder PO PRN ×2 (01:15→20:45)
[2017-04-27] MEDS ORDERED: Alum-Mag Hydrox-Simeth 30 mL Suspension PO PRN (01:15)
[2017-04-27] MEDS ORDERED: Ondansetron 2 mg/mL 2 mL Inj IVPUSH PRN ×2 (01:15→19:25)
--- NOTE | 2017-04-27 01:31 | PCM.HPMED ---
Subjective Date of Service Apr 27, 2017 Primary Provider: Admitting Physician: Primary Care Physician: Jolanta Tobin DO Attending Physician: Admit Status: From the Emergency Department Chief Complaint: Right hand pain History of Present Illness: Patient is a 41-year-old male with a history of diabetes type I, cellulitis, fibromyalgia, left testicular cancer and unconfirmed diagnosis of sarcoidosis presented to the emergency department complaining of right hand pain. Patient's right hand had a surgical repair of boxer fracture [address] Munroe. One week ago on, patient returned to the operating room and had pins placed. Since that time he had discontinued to become red and swollen and increasingly painful. He had follow-up appointments this week with the hand therapist who started him on clindamycin . He had one dose before coming to the emergency department. Previously had been on Keflex post surgery. The last dose of Keflex was 1 week ago. Patient states that he has been feeling worse since yesterday and has developed a fever with chills. Patient also has swelling in his right leg and states that it feels as if it is "on fire". At baseline he has bilateral painful neuropathy. Patient reports he has multiple sensitivities to metals but is unable to identify which metals. At baseline patient has significant GI symptoms including chronic diarrhea and pale-colored stool. He has an unconfirmed diagnosis of sarcoidosis. He has recently established with a primary care physician in hopes of a diagnosis. Patient denies nausea or vomiting, confusion, lightheadedness, chest pain Review of Systems: Complete ROS was performed and pertinent positives and negatives included in the history of present illness. All other findings were negative. Allergies Coded Allergies: yellow dye (Verified Allergy, Severe, Yellow dye in pills causes hives and rash, 03/23/17) pregabalin (Verified Allergy, Intermediate, Lesions and scabs to body, 04/26) Home Medications Albuterol HFA (Proair HFA) 8.5 Gm Hfa.aer.ad 2 PUFFS INHALATION Q4H Gabapentin (Gabapentin) 600 Mg Tablet 1,200 MG PO TID Omeprazole (Omeprazole) 20 Mg Capsule.dr 20 MG PO DAILY ([humalog ]) 70/30 Unknown Dose BID PRN PRN blood glucose Hydrocodone-Acetaminophen 10-325 mg (Hydrocodone-Acetaminophen 10-325 mg) 1 Each Tablet 1 TABLET PO Q6H PRN PRN For Pain L. Acidophilus/Bifid. Animalis (Probiotic 5 Billion Cell Cap) 1 Each Cap.sprink 2 EACH PO PMH 1. Diabetes Mellitus, type I 2. Neuropathy , bilateral lower extremity extending to pelvis 3. Testicular Cancer, left testicle surgically removed in 2002 with one round of chemotherapy 4. Sarcoidosis, unconfirmed 5. Sleep apnea, patient does not wear CPAP Surgical History 1. Boxer fracture repair right hand with revision 2. Removal of left testicle. Family History 1. Extensive family history of diabetes 2. No known family history of other autoimmune diseases Social History Hx Alcohol Use: No Hx Substance Use: Yes (CBD pill for pain control) Hx Tobacco Use: Yes (1/2-1ppd ) Smoking Status: Current Every Day Smoker Living Arrangement: with Family Exam Vital Signs Vital Sign - Last Date Time Temp Pulse Resp B/P Pulse Ox O2 Delivery O2 Flow Rate FiO2 04/26/17 22:29 38.8 113 24 95 Room Air Intake and Output 04/26/17 04/26/17 04/27/17 Cumulative From/Thru 15:00 23:00 07:00 04/26/17 22:29 - 04/26/17 23:30 Intake Total 1650 ml 1650 ml Balance 1650 ml 1650 ml Intake IV Total 1650 ml 1650 ml Exam General: Nondistressed, obese male sitting comfortably with his right hand propped on a pillow HEENT: NC/AT, PERRLA, EOM intact. Nontender sinuses, no nasal discharge. Some missing dentation, no erythema, nor exudate present in oropharynx. No thyromegaly appreciated. CV: Regular rate and rhythm, no murmurs, gallops, or rubs appreciated RESP: Expiratory wheezes on right throughout. Otherwise clear. ABD: Bowel sounds normal, nondistended, nontender to palpation. EXT: Significant warmth and erythema right hand extending to intermediate up right forearm. Swelling in right lower extremity without pitting. LYMPH: No cervical or axillary adenopathy appreciated NEURO: Symmetric face, cranial nerves grossly intact, strength intact bilaterally upper and lower extremities, sensation to light touch intact bilaterally upper and lower extremities. PSYCH: Oriented 4. Linear and appropriate conversation. Skin: No rashes or ecchymosis appreciated. Skin is warm to the touch. Single ulceration right plantar aspect of foot without erythema. Scattered excoriations across forehead. Lab and Diagnostics Result Diagram: 04/26/17 2337 04/26/17 2332 Assessment & Plan Patient is a 41-year-old male that presents with right hand pain after boxer fracture repair with revision. 1. Postoperative infection, right hand, present on admission and ongoing -Patient had orthopedic repair of boxer fracture 3 weeks ago with revision one week ago. Increasing pain and swelling since revision. -Orthopedic consulted -Culture from surgical site was obtained and is pending -Blood cultures obtained before antibiotic administration in the emergency department but after patient had taken a dose of clindamycin at home. These may be equivocal results. -Patient has undergone at least one week of Keflex, and had one dose of clindamycin before the emergency department, 1 in the emergency department, and one dose of vancomycin and 1 dose of meropenem in the emergency department. -Continue patient on ceftriaxone, vancomycin, and clindamycin 2. Sepsis, present on admission and ongoing -Patient presented tachycardic (113), fever (38.8C), and source of infection. - Antibiotics started in the emergency department. -1 L normal saline delivered in emergency department -2 additional liters of normal saline to be given 3. Anemia, present on admission and ongoing - Patient is uncertain if this is baseline for him. He denies blood in his stool or other blood losses. -Occult blood test ordered 4. Type I diabetes, present on admission and ongoing -Patient manages diabetes with Humalog 75-25 5. Right leg swelling, present on admission and ongoing - Patient reports this is new. Venous ultrasound January 2017 for swelling in right leg showed no DVTs but considering patient's recent surgeries and statement of new onset swelling, will order venous ultrasound of right leg Patient has been admitted into inpatient, he is expected to spend greater than to midnight in the hospital Pain Evaluation: Adequate Pain Control GI Prophylaxis: Proton Pump Inhibitor VTE Prophylaxis: SCDs Resuscitation Status: CPR: Attempt Resuscitation Attending Statement The patient was seen and examined together with Dr. Cantrell on 04/27 and I agree with the history, exam and plan as outlined in the note above. Zita Cantrell DO Apr 27, 2017 01:31 Ventura Valadez MD Apr 27, 2017 19:08
[2017-04-27] MEDS ORDERED: 0.9% Sodium Chloride 1,000 ML IV ONE (02:05)
[2017-04-27] MEDS ORDERED: Albuterol 2.5 mg/3 mL Inhalation Solution NEB PRN (02:15)
[2017-04-27] MEDS ORDERED: Glucose 40% Oral Gel 15 Gm Tube PO PRN (02:15)
[2017-04-27] MEDS ORDERED: Dextrose 10% 250 ML IV PRN (02:20)
[2017-04-27] MEDS ORDERED: OXYC-465 PO (02:29)
[2017-04-27] MEDS ORDERED: CEPH-512 PO (02:31)
[2017-04-27] MEDS ORDERED: CLIN-77 PO (02:34)
--- NOTE | 2017-04-27 02:48 | PCM.CONPHA ---
Subjective Date of Service: Apr 27, 2017 Requesting Provider: Zita Cantrell DO Right hand pain Reason for Pharmacy Consult: Vancomycin Dosing Objective Vital Signs Date Time Temp Pulse Resp B/P Pulse Ox O2 Delivery O2 Flow Rate FiO2 04/27/17 02:35 37.1 96 20 121/77 98 Room Air 04/27/17 01:51 37.1 102 16 129/89 94 Room Air 04/27/17 01:20 37.1 102 18 126/65 94 Room Air 04/26/17 22:29 38.8 113 24 95 Room Air Intake and Output 04/25/17 04/26/17 04/27/17 00:00 00:00 00:00 Intake Total 1650 ml Balance 1650 ml Weight (Kilograms): 125 Height (Feet): 5 Height (Inches): 10 Test 04/26/17 23:35 04/26/17 23:37 04/27/17 00:00 Urine Color [place] (YELLOW) Urine Appearance Clear (CLEAR,HAZY) Urine pH 5.5 (5.0-8.0) Urine Specific [place] 1.025 (1.003-1.035) Urine Protein >300mg/dL (NEG,TRACE) Urine Glucose (UA) Negativemg/dL (NEGATIVE) Urine Ketones Tracemg/dL (NEGATIVE) Urine Occult Blood Small (NEGATIVE) Urine Nitrite Negative (NEGATIVE) Urine Bilirubin Small (NEGATIVE) Urine Ictotest Positive (Negative) Urine Urobilinogen 1.0mg/dL (NORMAL) Urine Leukocyte Esterase Negative (NEGATIVE) Urine RBC 3-10/hpf (0-2) Urine WBC 0-5/hpf (0-5) Urine Epithelial Cells Occasional/hpf (NONE-MOD) Urine Crystals None seen (NONE SEEN) Urine Bacteria Few/hpf (NONE-FEW) Urine Hyaline Casts >20/lpf (NONE) Urine Granular Casts None seen (NONE SEEN) Urine Waxy Casts None seen (NONE SEEN) Urine Red Blood Cell Casts None seen (NONE SEEN) Urine White Blood Cell Casts None seen (NONE SEEN) Urine Mucus None seen (None Seen) Urine Trichomonas None seen (NONE SEEN) Urine Yeast None (NONE SEEN) Urinalysis Comment None Urine Culture Reflexed Not indicated White Blood Count 10.6th/mm3 (3.8-10.1) Red Blood Count 4.06mil/mm3 (4.40-5.80) Hemoglobin 12.9g/dL (13.8-17.2) Hematocrit 37.1% (41.0-50.0) Mean Corpuscular Volume 91.4fL (81-100) Mean Corpuscular Hemoglobin 31.8pg (27.0-35.0) Mean Corpuscular Hemoglobin Concent 34.8% (32.0-37.0) Red Cell Distribution Width 13.5% (12.3-15.4) Platelet Count 195bil/L (150-400) Neutrophils (%) (Auto) 74.0% (40-74) Lymphocytes (%) (Auto) 10.1% (14-46) Monocytes (%) (Auto) 14.9% (4-12) Eosinophils (%) (Auto) 0.7% (0-5) Basophils (%) (Auto) 0.1% (0-3) Sodium Level 138mEq/L (134-144) Potassium Level 4.3mEq/L (3.5-5.2) Chloride Level 96mEq/L (97-108) Carbon Dioxide Level 25mmol/L (18-29) Blood Urea Nitrogen 18mg/dL (6-24) Creatinine 1.05mg/dL (0.76-1.27) Estimat Glomerular Filtration Rate 83mL/min (>59) Glucose Level 183mg/dL (60-99) Lactic Acid Level 1.6mmol/L (0.4-2.0) Calcium Level 9.5mg/dL (8.5-10.1) Magnesium Level 1.7mg/dL (1.6-2.6) Total Bilirubin 1.1mg/dL (0.0-1.2) Aspartate Amino Transf (AST/SGOT) 14U/L (0-50) Alanine Aminotransferase (ALT/SGPT) 13U/L (0-44) Alkaline Phosphatase 99U/L (25-150) Troponin T 0.013ug/L (0.0-0.011) Total Protein 7.8g/dL (6.4-8.4) Albumin 3.9g/dL (3.4-5.0) Assessment/Plan Assessment/Plan A: * Vancomycin dosing by pharmacy for 41 y/o man with post-op infection of right hand, sepsis * He was given a 2000 mg IV vancomycin loading dose in the ED * The patient is also being started on clindamycin and ceftriaxone * Estimated CrCl for this patient is > 120 mL/min (Cockcroft & Gault using AdjBW ) * Estimated vancomycin half-life is 7 hours and estimated volume of distribution is 75 liters P: * Start vancomycin 1250 mg IV every 8 hours * Target a vancomycin trough range of 15 - 20 mcg/mL for now * Draw a trough level prior to the fourth 1250 mg dose Thank you. Pharmacy will continue to follow this patient. Radha York Apr 27, 2017 02:48
--- NOTE | 2017-04-27 04:27 | NUR ---
ADMIT PATIENT ARRIVED TO UNIT AT 0230 FROM ED. SELF TRANSFERRED TO BED. VITAL SIGNS STABLE. ALERT AND ORIENTED X4. PATIENT COMPLAINED OF 10/10 PAIN IN RIGHT HAND BUT ABLE TO COMPLETE ADMIT WITHOUT OBSERVABLE DISTRESS, PATIENT WAS PLEASANT AND JOKING. IV DILAUDID ADMINISTERED WHICH ALLOWED PATIENT TO FALL ASLEEP. RIGHT HAND SPLINTED, AT BEDSIDE WITH PLANS TO STAY THE NIGHT. PATIENT ORIENTED TO CALL LIGHT AND ROOM. PLAN IS IV ANTIBIOTICS AND SURGICAL CONSULT. WILL CONTINUE TO MONITOR.
[2017-04-27] MEDS: 0.9% Sodium Chloride 1,000 ML IV SCH ×2 (06:02→15:11)
[2017-04-27 06:06] LABS: BASOPHILS % (AUTO) 0.1 % (0-3); EOSINOPHILS % (AUTO) 0.6 % (0-5); MONOCYTES % (AUTO) 19.4 % (4-12); Mean Corpuscular Hemoglobin 31.4 pg (27.0-35.0); Platelet Count 171 bil/L (150-400)
--- NOTE | 2017-04-27 06:15 | NUR ---
High Risk CRYS Patient history of CRYS, states he will not wear CPAP and refuses to wear O2 at night. Encouraged patient to keep head of bed at 30 degrees. Patient's at bedside, will continue to monitor.
[2017-04-27] MEDS: Insulin LISPRO 300 Unit/3 mL Inj SUBQ SCH ×4 (08:00→22:00)
[2017-04-27] MEDS: Clindamycin Inj 900 MG in IV Premix 1 EACH IV SCH ×2 (08:21→17:49)
[2017-04-27] MEDS ORDERED: cefTRIAXone Inj 1,000 MG in Dextrose 5% Minibag Plus 50 ML IV SCH (08:30)
[2017-04-27] MEDS ORDERED: Vancomycin Dose per Pharmacist XX SCH (08:30)
--- NOTE | 2017-04-27 08:37 | DRSVH ---
PROCEDURE: US VEINOUS LEG DUPLEX UNILATERAL, RIGHT INDICATIONS: 41 year-old male with recent right lower extremity surgery, with right leg pain and swel ling. TECHNIQUE: Real-time imaging, as well as color and pulse Doppler interrogation, were performed of the lower extr emity deep veins from the inguinal ligament to the popliteal fossa. COMPARISON: [facility], US, US VENOUS LEG DPLX UNI RT, 02/05/2017, 13:06. FINDINGS: The deep veins are normally compressible, and free of intraluminal thrombus. Color and pu lse Doppler demonstrate normal phasic intraluminal flow. There is normal augmentation response to di stal compression maneuver. IMPRESSION: No sonographic evidence for right lower extremity deep venous thrombosis. Dictated by: Max Soto M.D. on 04/27/2017 at 8:33 Approved by: Max Soto M.D. on 04/27/2017 at 8:35
[2017-04-27] MEDS ORDERED: Vancomycin Inj 1,250 MG in 0.9% Sodium Chloride 250 ML IV SCH (09:00)
[2017-04-27] MEDS: Pantoprazole 20 mg ER24 Tablet PO SCH (09:06)
[2017-04-27] MEDS: HYDROcodone-APAP 10-325 mg PO PRN ×2 (09:07→23:21)
--- NOTE | 2017-04-27 09:39 | DRSVH ---
PROCEDURE: X-RAY RIGHT HAND, MINIMUM THREE VIEWS ([id number]) INDICATIONS: 41 year-old male with right fifth metacarpal fracture. TECHNIQUE: 3 views of the hand(s) acquired. COMPARISON: [facility], CR, XR HAND 3VW RT, 04/13/2017, 11:26. [facility], CR, XR HAND 3VW RT, 03/23/2017, 9:40. [facility], CR, XR HAND 3VW RT, 03/17/2017, 22:52. FINDINGS: Bones: The proximal fifth metacarpal fracture fixation hardware remains intact and in expected positi ons, with interval placement of several percutaneous fixation pins as well. Carpal bones are normall y aligned. No suspicious bony lesions. Soft tissues: No suspicious soft tissue calcifications. IMPRESSION: Comminuted moderately displaced intra-articular fracture of the proximal fifth metacarpal is unchanged in overall alignment, status post interval placement of several percutaneous fixation p ins. Dictated by: Max Soto M.D. on 04/27/2017 at 9:34 Approved by: Max Soto M.D. on 04/27/2017 at 9:38
--- NOTE | 2017-04-27 10:29 | NUR ---
CRYS Pt with observable sleep apnea. 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 Pt adamantly refuses CPAP and/or oxygen, shouted "I'm not putting any damn thing on my face." Hospitalist aware and spoke with pt; still refuses oxygen and CPAP. Per MD, ok to give IV and oral narcotics as ordered.
[2017-04-27] MEDS ORDERED: DAPTOmycin Inj 750 MG in 0.9% Sodium Chloride 50 ML IV SCH (12:00)
--- NOTE | 2017-04-27 13:29 | CONS ---
[address] [address] CONSULTATION REPORT PATIENT: HARSHAD FALLON : 1975 MR#: [id number] ADMIT: 04/27/2017 JOB ID: [id number] DATE OF SERVICE: 04/27/2017 [address] thank Drs. Jessica and Paulina for this consult as they both called me and asked me to see this patient. REASON FOR CONSULT: Right postoperative hand infection. HISTORY OF THE PRESENT ILLNESS: The patient is a complex, 41-year-old gentleman with insulin-dependent diabetes mellitus, history of left testicular cancer, peripheral neuropathy, possible sarcoid, and recurrent idiopathic pustular lesions. He was evaluated at [facility] in 2015, and underwent a lymph node biopsy which was said to show sarcoid. The patient was evaluated here on the inpatient service for a very brief admission in January of this year. At that time, he complains of generalized weakness, fatigue, malaise, and pustular sores or ulcers on his upper and lower extremities, as well as his trunk. He had been started on doxycycline for this and it was unclear perhaps if these lesions were related to his underlying sarcoid. He also complained during his January admission of rather severe neuropathy. During the course of that brief hospital stay, it was felt that he had probable cutaneous sarcoid with superimposed cellulitis or perhaps some atypical manifestation of psoriasis. He was just completing a month-long course of therapy at that time, with doxycycline the been prescribed as an outpatient and additional cultures done during that admission yielded MSSA, which was resistant, not surprisingly, to tetracyclines as well as group A strep. Also during that admission in January, there were efforts made to improve his diabetes control which had been very poor up to that point, and he was also continued on some gabapentin he had been receiving earlier. In any event, the patient left the hospital after that January 21 admission and was subsequently readmitted here on or about March 29. At that point, the patient had broken his 5th metacarpal by striking a table violently with his right hand. This was a displaced fracture, and for that reason, Dr. Munroe took the patient to surgery and repaired his comminuted 5th metacarpal base fracture with K-wires and screws. Unfortunately, the patient developed hardware failure with loosening screws and was taken back to the operating room on April 19, again by Dr. Munroe. At that time, he was taken back to the operating room for repair of the hardware as well as to better approximate the fracture which had become further displaced between mid and late March. Some external pins were then used to help stabilize the fracture and the patient was discharged after this procedure on April 19. Since the time of that 2nd hand surgery, the patient reports that his right hand has become increasingly painful across the entire right dorsal hand. The patient reported between his April 19 second procedure and his admission here yesterday evening, he has had progressive swelling, pain, and tenderness with some purulent drainage. He reported he had been started on clindamycin just recently and had been on Keflex after the surgery on April 19 as well, so he had a short course of Keflex and was then restarted on clindamycin just before admitted. He reports in addition to the swelling and redness with drainage of the right hand, he had also had some fevers, chills, and some right lower extremity swelling and tenderness. He also noted that he has chronic diarrhea which has really not changed for years and has been worked up without diagnosis. Following his readmission for the apparent infection of the surgical site on the right hand, the patient was started on broad-spectrum antibiotics which currently include vancomycin, meropenem, and clindamycin. ID consultation is requested by both the hospitalist and the orthopedic surgeon regarding optimal management. I have discussed the case this morning with the on-call orthopedist and she plans to consider additional debridement of the right hand, but some of the hardware must be left in place to stabilize this boxer fracture which has so far been difficult to manage. PAST MEDICAL HISTORY: 1. Type 2 diabetes with peripheral neuropathy. 2. Testicular cancer status post removal of the left testicle in 2002. 3. Sarcoid, presumptive diagnosis by biopsy of cervical lymph node. 4. 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 5. Sleep apnea without use of CPAP. SOCIAL HISTORY: The patient lives with his family in the local area. He is a nondrinker who is an ongoing daily cigarette smoker. FAMILY HISTORY: Negative for TB in first- and second-degree relatives but multiple family members have diabetes. REVIEW OF SYSTEMS: Was done. The patient states he has no significant headache or visual complaint. No sore throat. No cough, shortness of breath. He does have some nausea which is frequent and he is quite hungry right now because he is n.p.o. He has chronic diarrhea which his says has been worked up by every possible modality without a diagnosis. He does have occasional vomiting. His pustular skin rash on his extremities and torso is actually a bit better than at baseline. He has severe pain in his right hand as was mentioned in the history of the present illness and it is really almost agonizing in its severity. He has significant peripheral neuropathy which extends from his feet all the way up to his waist. Remainder of the review of systems is negative. PHYSICAL EXAMINATION: Reveals a febrile gentleman, temperature 38.2 earlier this morning, now 38, pulse 91, respiratory rate 18, blood pressure 139/87. He is saturating well on room air. Examination of the head reveals no trauma. Eyes without conjunctivitis or scleral icterus. Nose normal. Oral cavity: No thrush or hairy leukoplakia. Neck supple. His right upper extremity is abnormal grossly. There are no abnormalities though of the upper arm and there is no axillary or epitrochlear adenopathy on the right side. Starting about the mid forearm on the right, there is diffuse tenderness and at the wrist there is impressive erythema, swelling, and tenderness, which involves most of the ulnar 2/3 of the hand, especially along the dorsal aspect. There are protruding wires from the skin as well which are part of his fixation apparatus. He has minimal motion in that right hand right now. The left upper extremity appears benign. Lungs are notable for a few scattered wheezes. Cardiac tones: Regular rate and rhythm without significant murmur. The abdomen is soft and nontender. The patient does not have a Mauricio catheter. His lower extremities are free of swelling, synovitis, or cellulitis. He does have a very significant and dense peripheral neuropathy. Remainder of the physical unremarkable. LABORATORIES: Include white count that was 10,000 yesterday when he came in last night to the ER. It is now 9000. There is no significant left shift though he does have a monocytosis. His creatinine is 0.87. LFTs normal. Procalcitonin was not done during this admission, though it was done during his admission in January and was basically normal. Urinalysis 0-5 white cells. Streptozyme is pending. In looking at his cultures from his [facility] admission, and recall this is when he was having the pustules but had not yet suffered the fracture or any surgery, we have the culture of the hand at that time which was from a pustular lesion, grew group A strep and MSSA, only resistant to tetracyclines. He also had a MRSA screen back in the January admission which was negative. On this admission from last night we have blood cultures that are pending, a MRSA screen of the nares is pending, and a Gram stain of the discharge from the hand which has moderate gram-positive cocci to be identified. IMAGING: Includes the hand x-ray which shows a comminuted, moderately displaced intra-articular fracture of the proximal 5th metacarpal with percutaneous fixation pins in place. We also have a DVT study of the right lower extremity that is negative. IMPRESSION: This is an unfortunate gentleman who just about exactly one month ago sustained a boxer's fracture to the right hand after punching a table. This was surgically repaired almost immediately with hardware because of the displaced comminuted nature of the fracture, but subsequently there was loosening of the hardware which required a trip back to the operating room on April 19. Following that, he was kept on Keflex for a period of time and then switched to clindamycin for what appeared to be an emerging infection. He was admitted last night with what is clearly an infection with fever, leukocytosis, swelling, and extreme pain with some drainage from his right lateral hand. This is likely Staph, Strep, or a combination based on his cultures from January and also on the fact we have gram-positive cocci on the stain. I do not think we need anaerobic or gram-negative coverage at this time but I would like to maximize his gram-positive coverage as this is going to be a very difficult infection to treat, if as Dr. Gallardo intimated, we cannot remove the hardware which is likely involved by this very significant right hand infection. RECOMMENDATIONS: 1. Will discontinue the vancomycin and meropenem. 2. Will instead treat the patient with daptomycin 750 mg once a day. 3. Will continue with the high-dose clindamycin. 4. In view of the fact we have underlying hardware present, we will go ahead and add rifampin 450 b.i.d. Thank you very much. Note that this cased was discussed with both Drs. Gallardo and Aracely.
[2017-04-27] MEDS: Dextrose 5% 0.45% NaCl 1,000 ML IV SCH (13:37)
--- NOTE | 2017-04-27 18:25 | NUR ---
To OR Via stretcher at ~18:15. Report given to Jessica.
[2017-04-27] MEDS ORDERED: Propofol 10 mg/mL 20 mL Inj ONE (19:10)
[2017-04-27] MEDS ORDERED: fentaNYL-PF 50 mCg/mL 2 mL Inj ONE (19:10)
[2017-04-27] MEDS ORDERED: Ondansetron 2 mg/mL 2 mL Inj ONE (19:10)
[2017-04-27] MEDS ORDERED: Lactated Ringer's 1,000 ML IV ONE (19:10)
[2017-04-27] MEDS ORDERED: Lactated Ringer's 500 ML IV PRN (19:21)
[2017-04-27] MEDS ORDERED: Lactated Ringer's 1,000 ML IV SCH (19:21)
--- NOTE | 2017-04-27 19:21 | PCM.HPANE ---
Patient Data Surgeon Admitting Provider:Ventura Valadez MD Attending Provider:Jose Jessica Primary Care Physician:Jolanta Tobin DO Other Provider: Reason for Visit Right Hand Post Op Infection Ht/WT & BMI Height (Feet): 5 Height (Inches): 10.00 Weight (Kilograms): 125.000 Body Mass Index 39.45 Allergies Coded Allergies: yellow dye (Verified Allergy, Severe, Yellow dye in pills causes hives and rash, 03/23/17) pregabalin (Verified Allergy, Intermediate, Lesions and scabs to body, 04/26) Past Anesthesia History Anesthesia History: Denies:: Abnormal Airway, Anesthesia Reactions, Difficult Intubation, Fam Anesthesia Reaction, Fam Malignant Hypertherm, Malignant Hyperthermia Diabetes History Hx Diabetes?: Yes Type of Diabetes: Type II Glycemic Control: Insulin Dependent Current Bedside Blood Glucose: 199 MRSA MRSA: No Medications Reported Medications Clindamycin 150 Mg [id number] Mg PO QID Ref 0 04/27/17 oxyCODONE-Acetaminophen 7.5-325 mg 1 Each Tablet1 Tab PO Q4H PRN For Pain Ref 0 04/27/17 Albuterol HFA (Proair HFA)8.5 Gm Hfa.aer.ad2 Puffs INHALATION Q4H #1 INHALER 03/23/17 Hydrocodone-Acetaminophen 10-325 mg 1 Each Tablet1 Tablet PO Q6H PRN For Pain Ref 0 03/23/17 [humalog ] 70/30 No Conflict CheckUnknown Dose BID PRN blood glucose 03/23/17 Gabapentin 600 Mg Tablet1,200 Mg PO TID Ref 0 01/21/17 Discontinued Reported Medications Cephalexin (Keflex)500 Mg [id number] Mg PO BID #40 CAPSULE Ref 0 04/27/17 L. Acidophilus/Bifid. Animalis (Probiotic 5 Billion Cell Cap)1 Each Cap.sprink2 Each PO 03/23/17 Omeprazole 20 Mg Capsule.dr20 Mg PO DAILY Ref 0 01/21/17 Last Time Dose Received Takes 1-2 10mg norco/dd and approx 3 percocet per dd History History of ENT Problems?: No HEENT History: Denies:: Abnormal Airway Cataracts Difficult Intubation Dysphagia Hearing Problem Sinus Problem TMJ Denture Type: None Teeth Condition: Broken Teeth Missing Teeth Hx of Heart Problems?: No Cardiovascular History: Denies:: Abdominal Aortic Aneurism Atrial Fibrillation Cardiac Surgery Chest Pain Congestive Heart Failure Edema Heart Murmur Hypertension Irregular Heartbeat Pacemaker Rheumatic Fever Thrombophlebitis Valvular Heart Disease Hx of Respiratory Problem?: Yes Respiratory History: Positive for:: Asthma (use albuterol PRN) Pneumonia (2016) Denies:: COPD Chest Surgery Cough Dyspnea Emphysema Hemoptysis Pulmonary Embolism Tuberculosis Use of C-PAP Machine Hx Neurologic Problems?: Yes Neurological History: Positive for:: Dizziness Headaches Denies:: Alzheimer's Disease CVA Dementia Multiple Sclerosis Parkinson's Disease Seizures Hx of GI Problems?: Yes Hx of Problems?: Yes Genitourinary History: Denies:: HX of Hemodialysis Kidney Stones Urinary Tract Infection HX of Peritoneal Dialysis: No Other Pertinent History: saw urologist because couldn't go, dribbling Male Hx: Positive for:: Testicular Surgery (left testicular cancer) Denies:: Prostate Problems Scrotal Mass Skin History: Positive for:: History Skin Disorders? (leaking rash pososibly from Sarcoidosis) Denies:: Pressure Ulcers Hx Musculoskeletal Problems?: No Musculoskeletal History: Positive for:: Back Injury (three lower back disc missing since ) Musculoskeletal Trauma (hardware failure right metacarpal fx- admission problem) Denies:: Degenerative Joint Joint Replacement Systemic Lupus Hx of Psycho/Social Problems?: No Hx Surgeries?: Yes (multiple) Hx Any Other Health Problems?: Yes Other History: Positive for:: Cancer (testiclular) Hospitalization (01/21/17 dizziness and fever) Thyroid Disease (has allergies to thyroid meds (yellow dye)) History Blood Transfusions: Positive for:: Accept Blood Products? Denies:: Blood Transfuse Reaction Blood Transfusions Hx Diabetes: YesBedside Blood Glucose: 199 Other Pertinent History: cellulitis, fibromyalgia Hx Alcohol Use: NoHx Substance Use: Yes (CBC no THC) Smoking Status: Current Every Day Smoker Have You Smoked inLast 12 mo: YesApprox How Many Cigarettes/day: 1/2 pack Stop/Bang Treated for Sleep Apnea?: No Do You Have a CPAP Machine?: No (patient won't wear one) S-Snoring: Do You Snore Loudly: Yes T-Tired: feel tired, fatigued: Yes O-Obsered: Observed not breath: Yes P-Blood Pressure: treated: Yes B- Body Mass Index > 35 kg/m2: Yes A- Age over 50: No N- Neck Large Circumference: No G- Gender Male: Yes CRYS Total Score: 7 Risk Assessment Category Category 1A: Patient has history of documented sleep apnea, and HAS NOT received any narcotic, sedative or anesthesia administration during this stay. Category 1B: Patient has history of documented sleep apnea, and HAS received any narcotic , sedative or anesthesia administration during this stay Category 2: Patient has SUSPECTED Obstructive Sleep Apnea, and HAS received any narcotic , sedative or anesthesia administration during this stay. Category 3: Patient has SUSPECTED Obstructive Sleep Apnea and HAS NOT received narcotic, sedative or anesthesia administration during this stay. Category 4: Outpatient in Procedural Areas with known sleep apnea or who screen positive for High Risk via the STOP/BANG questionnaire. Exam Exam Vital Signs Vital Signs Date Time Temp Pulse Resp B/P Pulse Ox O2 Delivery O2 Flow Rate FiO2 04/27/17 16:28 37.2 80 18 134/84 95 Room Air 04/27/17 12:32 36.8 83 16 152/91 97 Room Air 04/27/17 09:51 38.0 91 18 139/87 97 Room Air General Appearance: Alert, Oriented X3 HEENT/AIRWAY: MP 2, Neck Movement (FROM) Lungs: Clear to Auscultation, Clear to Percussion Heart: Exam Unremarkable, Regular Rate/Rhythm Meds/Labs/Diagnostics Admission Meds Current Medications Sodium Chloride (Normal Saline) 1,000 ml @ 0 mls/hr Q0M ONCE IV Last administered on 04/26/17 23:57; Start 04/26/17 at 23:08; Stop 04/26/17 at 23:13; Status DC Pharmacy Consult 1 ea 1 ea ONCE ONCE XX Last administered on 04/27/17 01:13; Start 04/26/17 at 23:10; Stop 04/27/17 at 12:04; Status DC Clindamycin Phosphate/ Dextrose 900 mg/ Premix 50 ml @ 100 mls/hr ONCE ONCE IV Last administered on 04/26/17 23:30; Start 04/26/17 at 23:10; Stop 04/27/17 at 12:29; Status DC Meropenem 1000 mg/ Sodium Chloride 100 ml @ 200 mls/hr ONCE ONCE IV Last administered on 04/26/17 23:58; Start 04/26/17 at 23:10; Stop 04/27/17 at 12:04; Status DC Vancomycin HCl 2000 mg/Sodium Chloride 500 ml @ 250 mls/hr ONCE ONCE IV Last administered on 04/27/17 01:13; Start 04/26/17 at 23:45; Stop 04/27/17 at 12:04; Status DC Sodium Chloride (Normal Saline) 1,000 ml @ 0 mls/hr Q0M ONCE IV Last administered on 04/27/17 03:26; Start 04/27/17 at 02:05; Stop 04/27/17 at 02:09; Status DC Gabapentin (Neurontin) 1,200 mg TID PO Last administered on 04/27/17 09:06; Start 04/27/17 at 08:30 Pantoprazole (Protonix) 20 mg DAILY PO Last administered on 04/27/17 09:06; Start 04/27/17 at 08:30 Insulin Human Lispro Nutritional Dose to be given pr... [facility] SUBQ Last administered on 04/27/17 13:00; Start 04/27/17 at 08:00 Clindamycin Phosphate/ Dextrose 900 mg/ Premix 50 ml @ 100 mls/hr Q8 IV Last administered on 04/27/17 08:21; Start 04/27/17 at 07:30 Ceftriaxone Sodium 1000 mg/ Dextrose/Water 50 ml @ 100 mls/hr Q24H IV Last administered on 04/27/17 09:10; Start 04/27/17 at 08:30; Stop 04/27/17 at 12:04; Status DC Vancomycin HCl 1250 mg/Sodium Chloride 250 ml @ 166.667 mls/hr Q8H IV Last administered on 04/27/17 10:05; Start 04/27/17 at 09:00; Stop 04/27/17 at 12:05; Status DC Sodium Chloride 1,000 ml @ 100 mls/hr Q10H IV Last administered on 04/27/17 06 :02; Start 04/27/17 at 05:35 Daptomycin 750 mg/ Sodium Chloride 50 ml @ 100 mls/hr Q24H IV Last administered on 04/27/17 12:51; Start 04/27/17 at 12:00 Dextrose/Sodium Chloride (D5 1/2 Normal Saline) 1,000 ml @ 75 mls/hr [id number] IV Last administered on 04/27/17t 13:37; Start 04/27/17 at 12:15 Bedside Blood Glucose: 199 Labs Test 04/26/17 23:35 04/26/17 23:37 04/27/17 00:00 04/27/17 05:23 Urine Color [place] (YELLOW) Urine Appearance Clear (CLEAR,HAZY) Urine pH 5.5 (5.0-8.0) Urine Specific [place] 1.025 (1.003-1.035) Urine Protein >300mg/dL (NEG,TRACE) Urine Glucose (UA) Negativemg/dL (NEGATIVE) Urine Ketones Tracemg/dL (NEGATIVE) Urine Occult Blood Small (NEGATIVE) Urine Nitrite Negative (NEGATIVE) Urine Bilirubin Small (NEGATIVE) Urine Ictotest Positive (Negative) Urine Urobilinogen 1.0mg/dL (NORMAL) Urine Leukocyte Esterase Negative (NEGATIVE) Urine RBC 3-10/hpf (0-2) Urine WBC 0-5/hpf (0-5) Urine Epithelial Cells Occasional/hpf (NONE-MOD) Urine Crystals None seen (NONE SEEN) Urine Bacteria Few/hpf (NONE-FEW) Urine Hyaline Casts >20/lpf (NONE) Urine Granular Casts None seen (NONE SEEN) Urine Waxy Casts None seen (NONE SEEN) Urine Red Blood Cell Casts None seen (NONE SEEN) Urine White Blood Cell Casts None seen (NONE SEEN) Urine Mucus None seen (None Seen) Urine Trichomonas None seen (NONE SEEN) Urine Yeast None (NONE SEEN) Urinalysis Comment None Urine Culture Reflexed Not indicated Lactic Acid Level 1.6mmol/L (0.4-2.0) Magnesium Level 1.7mg/dL (1.6-2.6) Total Bilirubin 1.1mg/dL (0.0-1.2) Aspartate Amino Transf (AST/SGOT) 14U/L (0-50) Alanine Aminotransferase (ALT/SGPT) 13U/L (0-44) Alkaline Phosphatase 99U/L (25-150) Troponin T 0.013ug/L (0.0-0.011) Total Protein 7.8g/dL (6.4-8.4) Albumin 3.9g/dL (3.4-5.0) White Blood Count 9.7th/mm3 (3.8-10.1) Red Blood Count 3.44mil/mm3 (4.40-5.80) Hemoglobin 10.8g/dL (13.8-17.2) Hematocrit 32.0% (41.0-50.0) Mean Corpuscular Volume 93.0fL (81-100) Mean Corpuscular Hemoglobin 31.4pg (27.0-35.0) Mean Corpuscular Hemoglobin Concent 33.8% (32.0-37.0) Red Cell Distribution Width 13.6% (12.3-15.4) Platelet Count 171bil/L (150-400) Neutrophils (%) (Auto) 63.0% (40-74) Lymphocytes (%) (Auto) 16.7% (14-46) Monocytes (%) (Auto) 19.4% (4-12) Eosinophils (%) (Auto) 0.6% (0-5) Basophils (%) (Auto) 0.1% (0-3) Sodium Level 136mEq/L (134-144) Potassium Level 4.2mEq/L (3.5-5.2) Chloride Level 100mEq/L (97-108) Carbon Dioxide Level 23mmol/L (18-29) Blood Urea Nitrogen 15mg/dL (6-24) Creatinine 0.87mg/dL (0.76-1.27) Estimat Glomerular Filtration Rate 103mL/min (>59) Glucose Level 173mg/dL (60-99) Calcium Level 8.2mg/dL (8.5-10.1) Plan Impression Patient chart reviewed, patient interviewed and anesthestic plan with risks, benefits, and alternatives discussed, and informed consent obtained. NPO per Anesth. Guidelines: Yes ASA Physical Status: ASA3 Severe Disease (IDDM; morbid obesity) Anesthetic Plan: GA Bene/Risks/Altern/Consents: Yes HP Complete Prior to Induction: Yes Other pre-op BS 170's Tyson Lares MD Apr 27, 2017 17:35
[2017-04-27] MEDS ORDERED: Phenylephrine 10,000 mCg/mL Inj IVPUSH PRN (19:25)
[2017-04-27] MEDS ORDERED: fentaNYL-PF 50 mCg/mL 2 mL Inj IVPUSH PRN (19:25)
[2017-04-27] MEDS ORDERED: MetoCLOpramide 5 mg/mL 2 mL Inj IVPUSH PRN (19:25)
[2017-04-27] MEDS ORDERED: Atropine 0.4 mg/mL Inj IVPUSH PRN (19:25)
[2017-04-27] MEDS ORDERED: Labetalol 5 mg/mL 20 mL Inj IV PRN (19:25)
[2017-04-27] MEDS ORDERED: EPHEDrine Sulfate 50 mg/mL Inj IVPUSH PRN (19:25)
[2017-04-27] MEDS ORDERED: HYDROmorphone 1 mg/mL Inj IVPUSH PRN (19:25)
[2017-04-27] MEDS ORDERED: Gentamicin 40 mg/mL 2 mL Inj IRRIGATION ONE (19:47)
--- NOTE | 2017-04-27 20:34 | PCM.ANEP1 ---
Post Anesthesia PACU Phase 1 Assessment Vital Signs Vital Signs Date Time Temp Pulse Resp B/P Pulse Ox O2 Delivery O2 Flow Rate FiO2 04/27/17 16:28 37.2 80 18 134/84 95 Room Air Anesthetic Administered: GA Level of Alertness: Awake, talking LADD's with Equal Strength: Yes Pain: No Pain Scale Score: 6 Nausea or Vomiting: No CV Function & Hydration Stable: Yes Airway Device: Oxygen Delivery: Simple Mask Lungs: Clear to Auscultation, Clear to Percussion PACU Phase 2 Assessment Complications: No Follow up Care: No Patient Instructions Provided: N/A Comments See anesth record for PACU VS. PACU VSS Tyson Lares MD Apr 27, 2017 20:34
[2017-04-27] MEDS ORDERED: diphenhydrAMINE 25 mg Capsule PO PRN (20:45)
[2017-04-27] MEDS ORDERED: Magnesium Hydroxide 10 mL Oral Concentration PO PRN (20:45)
[2017-04-28] VITALS (7 sets, daily range): BP systolic 117–156; BP diastolic 69–89; PULSE 75–88; RESP 16–20; O2SAT 93–96
[2017-04-28] MEDS: Clindamycin Inj 900 MG in IV Premix 1 EACH IV SCH ×3 (00:53→17:57)
[2017-04-28] MEDS: Sodium Chloride LOK Flush 10 mL Syringe IV SCH ×3 (00:54→16:30)
[2017-04-28] MEDS: 0.9% Sodium Chloride 1,000 ML IV SCH (01:35)
--- NOTE | 2017-04-28 01:48 | NUR ---
Arrival from PACU Pt. arrived back from PACU at 2114. Pt. alert and oriented x3. in room. Will continue to monitor.
--- NOTE | 2017-04-28 01:49 | NUR ---
Oxygen Pt. refuses to wear oxygen or C-PAP, and refuses to be monitored via pulse oximetry despite known CRYS risk. Pt. and educated about CRYS and possible risks. Pt. still is declining to wear oxygen or C-PAP, or to be monitored via pulse oximetry. Will continue to monitor.
--- NOTE | 2017-04-28 01:52 | NUR ---
Diarrhea Pt. had an episode of diarrhea. Pt. states this is normal for him, and he often has diarrhea. Pt. requested antidiarrheal medication. Olivia DOMÍNGUEZ paged. Olivia DOMÍNGUEZ ordered a C-diff stool sample to be taken, and ordered Immodium PO. Will continue to monitor.
--- NOTE | 2017-04-28 03:57 | CONS ---
[address] [address] CONSULTATION REPORT PATIENT: HARSHAD FALLON : 1975 MR#: [id number] ADMIT: 04/27/2017 JOB ID: [id number] DATE OF SERVICE: 04/27/2017 ORTHOPEDIC IN-HOUSE CONSULTATION: CPT code 84601-02. REASON FOR SURGERY: This is a 41-year-old male with type 1 insulin dependent diabetes for approximately 17 years, was admitted to the hospitalist service for postop right hand infection. The patient had undergone open reduction internal fixation for a reverse Jacobs fracture by Dr. Wilmer Munroe in mid March. The patient had done well initially but on followup in the clinic there was some loss of fracture reduction. Dr. Munroe then took the patient back to the operating room on April 19, 2017 and removed a loose screw, replaced that loose screw and also applied some K-wires for additional stabilization of the reverse Jacobs fracture, also keeping the plate and screws in the 5th metacarpal shaft. The patient then presented to the emergency department early this morning with fever, pain, swelling and erythema over the right hand proximal fifth metacarpal wound at the level of the carpometacarpal joint. He was admitted and placed on IV antibiotics. At the time of admission patient had fever, chills, some GI symptoms including chronic diarrhea and some pale colored stools. The patient also has multiple other medical problems including a non-confirmed diagnosis of sarcoidosis. The patient also has diabetic peripheral neuropathy. HOME MEDICATIONS: Include albuterol, gabapentin, omeprazole, Humalog insulin, hydrocodone and probiotic. MEDICAL ILLNESSES: Positive for type 1 diabetes, peripheral neuropathy lower extremities, testicular cancer, left testicle surgically removed 2002 and prior treatment with chemotherapy, unconfirmed sarcoidosis and sleep apnea but he does not wear CPAP. PRIOR SURGERY: He has had a removal of one testicle for his testicular cancer and status post ORIF of his right proximal fifth metacarpal fracture at the carpometacarpal joint with two previous procedures. FAMILY HISTORY: He has an extensive family history of diabetes. SOCIAL HISTORY: The patient does not smoke. He takes CBD pill for chronic pain. He smokes 1/2 pack per day. He lives with his family. REVIEW OF SYSTEMS: HEENT: The patient is not having any hearing or visual deficits at this time. Respiratory: No shortness of breath. Cardiovascular: No chest pain. GI: He does have some nausea and some loose stool. Musculoskeletal: Right hand pain. Neuro: History of diabetic peripheral neuropathy. PHYSICAL EXAMINATION: Vital Signs: 177 cm male, 125 kg. Admission temperature was 38.8, pulse 113, respiration 24. Repeat vital signs: The patient's blood pressure was 154/88 and his temperature improved to 36.8. Physical examination relatively anxious, somewhat short tempered individual with pain in the right hand and clinical signs consistent with right hand postoperative wound infection. The patient does respond to questions, but he is very short-tempered and very irritated that he is not able to the eat. There did not appear to be any ascending lymphangitis. I evaluated the patient at 7 a.m. this morning. At that time, I determined that he would require incision and drainage of the infected wound. I explained to the patient that if surgery would need to be performed later in the day since he had an obvious infection and other noninfected cases were already posted for today. I did politely explain to the patient that we would try to perform his surgery as soon as possible, but he would have again be performed at the end of the day since he did have an infection. I also told him I would check with one of my colleagues to see if they could be of assistance any sooner. As it turned out, my one colleague who was available, was actually in clinic for the entire day and he would not be available any sooner than I would be. I did contact Dr. Wilmer Munroe and had a careful a conversation with him in regards to the optimal treatment plan for this patient. The consensus on treatment was for me to open the wound, obtain cultures and send cultures for sensitivity and if possible leave any hardware so as not to destabilize the fracture. Later this afternoon I was able to discuss with the patient again the treatment plan. He did agree to incision and drainage of his right hand infection. Surgical consent was then signed. I did indicate there are no guarantees that he might not require additional surgery. There is also the potential he could go on to delayed union or nonunion of the fracture and also require potential additional surgery. Dr. Lawrence Patten is covering for the weekend and Dr. Wilmer Munroe will resume the patient's medical care starting next Sunday. Cc: [facility] Orthopedics
--- NOTE | 2017-04-28 05:12 | OP ---
[address] [address] OPERATIVE REPORT PATIENT: HARSHAD FALLON : 1975 MR#: [id number] ADMIT: 04/27/2017 JOB ID: [id number] DATE OF SURGERY: 04/27/2017 PREOPERATIVE DIAGNOSIS(ES): Postoperative right hand-wrist wound infection proximal portion of the 5th metacarpal over the carpometacarpal joint. POSTOPERATIVE DIAGNOSIS(ES): Postoperative right hand-wrist wound infection proximal portion of the 5th metacarpal over the carpometacarpal joint. PROCEDURE: Incision and drainage, irrigation and debridement right hand deep wound infection. CPT code 99955-56. Unplanned procedure during the postoperative period. SURGEON: Kamari Gallardo MD. PRODUCTION ESTIMATOR: None. ANESTHESIA: General. TOURNIQUET: Applied but it was not utilized. SPECIMENS: Cultures were sent to bacteriology. SPONGE AND NEEDLE COUNT: Correct. COMPLICATIONS: No complications. INDICATIONS: A 41-year-old, insulin dependent diabetic male previously status post open reduction internal fixation of a reverse Jacobs fracture over the right proximal 5th carpometacarpal joint. On the patient's return to clinic about two weeks after his surgery, he was noted to have some inflammation around the nylon sutures and also one of the screws that was supposed to have been locking evidently became loose. The fracture had also lost alignment. The patient was then taken back to the operating room by Dr. Wilmer Munroe on April 19, 2017 for replacement of the one screw that was not locking properly and additional K-wire stabilization. The K-wires were placed at the 5th carpometacarpal joint. The patient was admitted early in the morning on April 27, 2017 with fever, chills and diarrhea and erythema on the right hand. He was placed on antibiotic multi medication regimen and also consulted infectious disease. I was ux information architect the evening the patient was admitted and Dr. Wilmer Munroe was out of town. I did discuss treatment options with the patient and also consulted Dr. Munroe in regards to the best course of treatment for this patient. Please note, the patient was very agitated prior to surgery as he was hungry and uncomfortable. I did reassure him I had spoken with Dr. Munroe and we had reached a consensus of treatment plan. DESCRIPTION OF PROCEDURE: After appropriate time-out was called, a well-padded tourniquet was applied to the right upper extremity. The arm was prepped and draped in sterile fashion. Although the tourniquet was applied, it was not utilized. The sutures were removed from the right hand wound. Prolene sutures had been used on the second procedure since the patient had some reaction to the nylon sutures. Once all sutures were removed, I was able to bluntly open the wound without difficulty. There was some cloudy purulent type material to the subcutaneous tissue. That was sent for culture and sensitivity and Gram stain. The percutaneous K-wires were cleaned of any debris around their edge. The wound was thoroughly irrigated with antibiotic solution by gravity irrigation. The more superficial portion of the K-wires was irrigated. I did not need to open the covering over the plate itself. After the wound was thoroughly irrigated with antibiotic solution, clean gloves, clean drapes and clean instruments were utilized. I was able to then loosely reapproximate the previous surgical incision with 3-0 Prolene. Simple sutures were utilized. I then did tuck in a small amount of quarter-inch gauze moistened with gentamicin antibiotic irrigation. I did replace one of the pin covers over one of the pins. I then placed some Xeroform over the wounds and cut a central hole over the wound itself in the Xeroform to avoid placing an absolute occlusive dressing. Dry sterile gauze was applied and the patient was placed in a well padded short arm fiberglass splint. The patient was taken to recovery room in stable condition. Sponge and needle count correct. PLAN: The patient has wick gauzes in between the sutures. Those will need to be removed sometime over the next 24-48 hours. The patient is to continue on IV antibiotics as per infectious disease. The patient appeared to be more comfortable postoperatively. I did explain to the patient that he does have wick gauzes in the wound and those will need to be removed, most probably on Sunday either by Ayla White PA-C or by Dr. Lawrence Patten who is on-call this weekend. I did also contact Dr. Wilmer Munroe and informed him of the intraoperative findings and the treatment plan was made including removal of the packing on Sunday. Infectious Disease will need to be contacted for follow close up and for antibiotic recommendations. Cc: [facility] Orthopedics
[2017-04-28 05:56] LABS: BASOPHILS % (AUTO) 0.1 % (0-3); EOSINOPHILS % (AUTO) 1.2 % (0-5); MONOCYTES % (AUTO) 17.7 % (4-12); Mean Corpuscular Hemoglobin 31.4 pg (27.0-35.0); Mean Corpuscular Volume 93.7 fL (81-100); NEUTROPHILS % (AUTO) 62.4 % (40-74); Platelet Count 160 bil/L (150-400)
[2017-04-28] MEDS ORDERED: Vancomycin Serum Trough XX ONE (08:00)
[2017-04-28] MEDS: Dextrose 5% 0.45% NaCl 1,000 ML IV SCH ×2 (08:05→14:55)
[2017-04-28] MEDS: Pantoprazole 20 mg ER24 Tablet PO SCH (08:14)
[2017-04-28] MEDS: Senna-Docusate 8.6-50 mg Tablet PO SCH ×2 (08:16→20:30)
[2017-04-28] MEDS: Insulin LISPRO 300 Unit/3 mL Inj SUBQ SCH ×4 (08:26→22:43)
--- NOTE | 2017-04-28 10:53 | PCM.PNORTH ---
Subjective Date of Service: Apr 28, 2017 Visit Information: Reason for Visit Right Hand Post Op Infection Surgery/Surgery Date Post-Op Day # 1 Date of Admission: Apr 27, 2017 at 01:21 Hospital Day # Subjective Patient states he is having very little pain today and is drastically improved from yesterday. Patient states because he is feeling so good he would like to go home today. states she had to convince him to stay the night because he was feeling well last night immediately after surgery. Patient is aware that we are awaiting cultures and that there are ender in his hand that should be removed tomorrow. Postop General: No Complaints, No Shortness of Breath, No Chest Pain Pain Management: PO Objective Exam Objective Patient laying in bed with hand elevated. Vital Signs and I/O Vital Sign - Last Date Time Temp Pulse Resp B/P Pulse Ox O2 Delivery O2 Flow Rate FiO2 04/28/17 08:31 81 16 94 Room Air 04/28/17 07:57 36.9 131/79 04/27/17 20:35 8 Intake and Output 04/27/17 04/27/17 04/28/17 Cumulative From/Thru 15:00 23:00 07:00 04/26/17 22:29 - 04/28/17 05:27 Intake Total 850 ml 1745 ml 5795 ml Output Total 1710 ml 2260 ml Balance -860 ml 1745 ml 3535 ml Intake Oral 0 ml 0 ml IV Total 850 ml 1745 ml 5795 ml Output Urine Total 1700 ml 2250 ml Estimated Blood Loss 10 ml 10 ml # Voids 1 1 # Bowel Movements 0 0 Lab & Micro Results Laboratory Tests Test 04/28/17 05:30 White Blood Count 7.7th/mm3 (3.8-10.1) Red Blood Count 3.47mil/mm3 (4.40-5.80) Hemoglobin 10.9g/dL (13.8-17.2) Hematocrit 32.5% (41.0-50.0) Mean Corpuscular Volume 93.7fL (81-100) Mean Corpuscular Hemoglobin 31.4pg (27.0-35.0) Mean Corpuscular Hemoglobin Concent 33.5% (32.0-37.0) Red Cell Distribution Width 13.1% (12.3-15.4) Platelet Count 160bil/L (150-400) Neutrophils (%) (Auto) 62.4% (40-74) Lymphocytes (%) (Auto) 18.5% (14-46) Monocytes (%) (Auto) 17.7% (4-12) Eosinophils (%) (Auto) 1.2% (0-5) Basophils (%) (Auto) 0.1% (0-3) Microbiology 04/26/17 Blood Culture - Preliminary, Resulted NO GROWTH AFTER 24 HOURS 04/27/17 MRSA (PCR) - Final, Complete 04/27/17 Gram Stain - Final, Resulted 04/27/17 Culture & Sensitivity - Preliminary, Resulted Insufficient growth, culture is reinc... 04/27/17 Anaerobic Culture, Resulted Pending Result Diagram: 04/28/17 0530 04/27/17 05 General Appearance: Alert, Oriented X3, Cooperative, No Acute Distress Extremities: Warm Postop Sensory Motor: Distal Motor Intact, Movement in Fingers, Distal Sensation Intact, NVI Distally SURGICAL WOUND : Wound Location/Description Post-op splint c/d/i. Assessment & Plan Impression POD#1 right hand I&D Problems: Plan Patient currently takes hydrocodone/acetaminophen 10/325 3 times a day for neuropathy and other pain and is being followed by his primary care provider. Patient is requesting Percocet 7.5/325mg for his home medication. I thoroughly counseled and his on the wrists of acetaminophen overdose. They will keep a log of the tear pain medication to avoid exceeding the allotted amount of acetaminophen. This will likely mean Percocet 7.5/325 one tab Q6H at maximum which they verbalized understanding of. We are currently awaiting cultures. Patient has agreed to stay until tomorrow at which time we will remove the ender from his hand before placing him back into his splint. He threatened to leave AMA earlier today but states he will stay through the night. Weightbearing: Nonweightbearing with the right upper extremity. Wound care: Keep splint intact and dry. Will remove tomorrow assess wound and remove ender then reapply splint. Analgesia: Addressed above Discharge plan: Discharge home in 1-2 days, pending culture results. Follow-up plan: Keep your appointment with Dr. Munroe on Sunday of this week. VTE Prophylaxis: SCDs Resuscitation Status: CPR: Attempt Resuscitation White,Ayla N PA-C Apr 28, 2017 10:53
[2017-04-28] MEDS ORDERED: Dalbavancin 500 mg Inj IV ONE (10:55)
--- NOTE | 2017-04-28 11:54 | PCM.PNMED ---
Subjective Date of Service Apr 28, 2017 Subjective Denies any new issues/complaints. Loose stools last night Exam Vital Signs Vital Sign - Last Date Time Temp Pulse Resp B/P Pulse Ox O2 Delivery O2 Flow Rate FiO2 04/28/17 08:31 81 16 94 Room Air 04/28/17 07:57 36.9 131/79 04/27/17 20:35 8 Intake and Output 04/27/17 04/27/17 04/28/17 Cumulative From/Thru 15:00 23:00 07:00 04/26/17 22:29 - 04/28/17 05:27 Intake Total 850 ml 1745 ml 5795 ml Output Total 1710 ml 2260 ml Balance -860 ml 1745 ml 3535 ml Intake Oral 0 ml 0 ml IV Total 850 ml 1745 ml 5795 ml Output Urine Total 1700 ml 2250 ml Estimated Blood Loss 10 ml 10 ml # Voids 1 1 # Bowel Movements 0 0 General: Alert, Cooperative, No Acute Distress Head: Normal Eyes: Scleral Anicteric Nose: Mucous Membr Moist/[place] Mouth: Mucous Membr Moist/[place] Neck: Supple Chest & Lungs: Chest Wall Normal, Clear to auscultation & percussion Cardiovascular: Regular Rate/Rhythm Pulses: NL carotid, radial, femoral, DP, PT Abdomen: Non-tender, Non-distended, Normoactive bowel tones, Soft Extremities: Other (1+ pitting edema in LE bilat. right hand in dressing) Skin: Other (right hand in dressing (c/d/i)) Neurological: Grossly Neurologically Intact, Normal Speech IVs and Medications Medications Reviewed: Medications were reviewed in detail Lab and Diagnostics Result Diagram: 04/28/17 0530 04/27/17 0523 X-Rays, CTs and MRIs Date of Service: 04/27/17 0848 PROCEDURE: X-RAY RIGHT HAND, MINIMUM THREE VIEWS ([id number]) IMPRESSION: Comminuted moderately displaced intra-articular fracture of the proximal fifth metacarpal is unchanged in overall alignment, status post interval placement of several percutaneous fixation pins. Dictated by: Max Soto M.D. on 04/27/2017 at 9:34 Approved by: Max Soto M.D. on 04/27/2017 at 9:38 Additional Diagnostics Date of Service: 04/27/17 0208 PROCEDURE: US VEINOUS LEG DUPLEX UNILATERAL, RIGHT IMPRESSION: No sonographic evidence for right lower extremity deep venous thrombosis. Dictated by: Max Soto M.D. on 04/27/2017 at 8:33 Approved by: Max Soto M.D. on 04/27/2017 at 8:35 Assessment & Plan 41-year-old male that presents with right hand pain after boxer fracture repair with revision. # Acute Postoperative right hand-wrist wound infection proximal portion of the 5th metacarpal over the carpometacarpal joint, present on admission. Ongoing - Patient had orthopedic repair of boxer fracture 3 weeks ago with revision one week ago. Increasing pain and swelling since revision. - Post incision and drainage, irrigation and debridement right hand deep wound infection on 04/27/17 - Appreciate Ortho and ID consults. Will followup with recs - Culture from surgical site was obtained and is pending - Blood cultures obtained before antibiotic administration in the emergency department but after patient had taken a dose of clindamycin at home. - Patient has undergone at least one week of Keflex, and had one dose of clindamycin before the emergency department, 1 in the emergency department, and one dose of vancomycin and 1 dose of meropenem in the emergency department. - Per discussion with Dr. Morales on 04/28/17 and given patient's high risk of leaving AMA and possible bone infection will give one dose of Dalbavancin 1500mg IV x 1, stop Daptomycin, and continue with Clindamycin for now. - Plan to remove the wound wick by ortho tomorrow - Continue with supportive care including IV Morphine prn # Acute sepsis, present on admission. - Clinically resolved - Patient presented tachycardic (113), fever (38.8C), and source of infection his right hand. - Antibiotics as noted above # Mild normocytic anemia, likely chronic, present on admission. - Stable. - Further followup and workup as outpatient # Type I diabetes, present on admission and ongoing - Continue with home dose Insulin # Right leg swelling more than left, present on admission and ongoing - No evidence of DVT on U/S # Chronic diarrhea, present on admission. Ongoing - Unclear etiology and per patient extensively worked up as outpatient already Dispo: 1-2 days GI Prophylaxis: Proton Pump Inhibitor VTE Prophylaxis: SCDs VTE Mechanical Devices: Intermittant Pneumatic CD Resuscitation Status: CPR: Attempt Resuscitation Jose Jessica Apr 28, 2017 11:54
[2017-04-28] MEDS: HYDROcodone-APAP 10-325 mg PO PRN ×2 (12:02→22:36)
[2017-04-28] MEDS ORDERED: Dalbavancin Inj 1,500 MG in Dextrose 5% 500 ML IV ONE (12:25)
[2017-04-28] MEDS ORDERED: DAPTOmycin Inj 750 MG in 0.9% Sodium Chloride 50 ML IV SCH (12:30)
--- NOTE | 2017-04-28 17:46 | NUR ---
Social Work-initial assessment/multidisciplinary rounds: Data:See initial assessment. Pt is 41 y/o male who was admitted on 04/27/17 for right hand post op infection per H&P. Pt's insurance is [employer], IP [facility] and PCP is Jolanta Tobin DO. EMR Reviewed. SW met with pt and at bedside, SW role explained. Pt is alert and oriented x3. Pt resides at home with his Andres he remains independent with ADLS. Pt does not use any DME and drives. Pt has no HH or SNF history. Pt has no joint terminal attack controller care insurance or VA benefits. SW discussed DPOA/ advanced directive, information has been provided. No concerns noted in morning rounds regarding pt's capacity for self care, per RN or MD. Pt has been up independent in his room. Pt's to provide transport home. SW provided pt with discharge planning checklist and encouraged pt to call with any questions, phone number provided. ID MD involved in pt's case. No anticipated discharge needs. SW will continue to follow if needs arise. Assessment:Pt who is independent at baseline. Plan:Pt to discharge home when medically stable via POV. No anticipated discharge needs. SW will continue to follow if needs arise. LESA Warner Addendum: 04/28/17 at 1749 by YOEL MUÑIZ Amended: Links added.
--- NOTE | 2017-04-28 18:10 | NUR ---
PAIN/NON COMPLIANCE Patient pain controlled with PO pain medications, antibiotic therapy ongoing. Patient refusing PT and pulse Ox/O2 at night. Blood sugars 200-250 throughout shift, no bouts on diarrhea today.
[2017-04-29] MEDS: Clindamycin Inj 900 MG in IV Premix 1 EACH IV SCH ×2 (00:58→07:49)
[2017-04-29] MEDS: Sodium Chloride LOK Flush 10 mL Syringe IV SCH ×2 (00:58→07:49)
--- NOTE | 2017-04-29 03:07 | NUR ---
High Risk CRYS Pt. is still refusing pulse oximetry and oxygen tonight despite high risk CRYS. Pt. educated on risks, and still refuses.
--- NOTE | 2017-04-29 03:08 | NUR ---
Pain Pt. had an increase of pain. Roxicodone PO given for pain and seemed to be effective. Will continue to monitor.
[2017-04-29] MEDS: Dextrose 5% 0.45% NaCl 1,000 ML IV SCH (03:40)
[2017-04-29 05:00] VITALS: BP 127/72; PULSE 73; RESP 16; O2SAT 98
[2017-04-29] MEDS: HYDROcodone-APAP 10-325 mg PO PRN (05:50)
[2017-04-29 06:03] LABS: Mean Corpuscular Hemoglobin 31.3 pg (27.0-35.0); Mean Corpuscular Volume 92.5 fL (81-100)
[2017-04-29 06:32] LABS: TROPONIN T 0.01 ug/L (0.0-0.011)
[2017-04-29 06:42] LABS: Magnesium 1.6 mg/dL (1.6-2.6)
[2017-04-29 07:45] VITALS: PULSE 72; RESP 16; O2SAT 97
[2017-04-29] MEDS: Insulin LISPRO 300 Unit/3 mL Inj SUBQ SCH ×2 (07:49→13:03)
[2017-04-29] MEDS: Senna-Docusate 8.6-50 mg Tablet PO SCH (07:50)
[2017-04-29] MEDS: Pantoprazole 20 mg ER24 Tablet PO SCH (07:50)
--- NOTE | 2017-04-29 08:30 | NUR ---
Agitated Pt agitated this shift change. Pt stating he is leaving AMA. Therapeutic conversation by this RN. Pt and acknowledge and understand the need to stay until MD rounds. Listen and redirected pt. Pt and thanked this RN. Care continues.
--- NOTE | 2017-04-29 09:25 | PCM.PNORTH ---
Subjective Date of Service: Apr 29, 2017 Visit Information: Reason for Visit Right Hand Post Op Infection Surgery/Surgery Date Post-Op Day # 2 Date of Admission: Apr 27, 2017 at 01:21 Hospital Day # Subjective Patient is adamant that he leave today. He states he is having very little pain today. He states he has kept his splint on and has been compliant with his nonweightbearing status. He has been wiggling his fingers and states that does not elicit pain. Postop General: No Complaints, No Shortness of Breath, No Chest Pain Pain Management: PO Objective Exam Objective Patient sitting up in bed Vital Signs and I/O Vital Sign - Last Date Time Temp Pulse Resp B/P Pulse Ox O2 Delivery O2 Flow Rate FiO2 04/29/17 07:45 72 16 97 Room Air 04/29/17 05:00 36.7 127/72 04/27/17 20:35 8 Intake and Output 04/28/17 04/28/17 04/29/17 Cumulative From/Thru 14:59 22:59 06:59 04/26/17 22:29 - 04/29/17 05:18 Intake Total 800 ml 1821 ml 700 ml 9116 ml Output Total 350 ml 500 ml 3110 ml Balance 450 ml 1321 ml 700 ml 6006 ml Intake Oral 800 ml 900 ml 700 ml 2400 ml IV Total 921 ml 6716 ml Output Urine Total 350 ml 500 ml 3100 ml Estimated Blood Loss 10 ml # Voids 3 2 2 8 # Bowel Movements 1 2 3 Lab & Micro Results Laboratory Tests Test 04/29/17 05:39 White Blood Count 6.9th/mm3 (3.8-10.1) Red Blood Count 3.45mil/mm3 (4.40-5.80) Hemoglobin 10.8g/dL (13.8-17.2) Hematocrit 31.9% (41.0-50.0) Mean Corpuscular Volume 92.5fL (81-100) Mean Corpuscular Hemoglobin 31.3pg (27.0-35.0) Mean Corpuscular Hemoglobin Concent 33.9% (32.0-37.0) Red Cell Distribution Width 13.1% (12.3-15.4) Platelet Count 181bil/L (150-400) Sodium Level 139mEq/L (134-144) Potassium Level 4.0mEq/L (3.5-5.2) Chloride Level 102mEq/L (97-108) Carbon Dioxide Level 21mmol/L (18-29) Blood Urea Nitrogen 9mg/dL (6-24) Creatinine 0.73mg/dL (0.76-1.27) Estimat Glomerular Filtration Rate 126mL/min (>59) Glucose Level 256mg/dL (60-99) Calcium Level 8.4mg/dL (8.5-10.1) Magnesium Level 1.6mg/dL (1.6-2.6) Troponin T 0.010ug/L (0.0-0.011) Procalcitonin 0.04ng/mL (0.00-0.08) Microbiology 04/26/17 Blood Culture - Preliminary, Resulted No growth at 2 days; culture examined... 04/27/17 MRSA (PCR) - Final, Complete 04/27/17 Gram Stain - Final, Resulted 04/27/17 Culture & Sensitivity - Preliminary, Resulted Staphylococcus Aureus 04/27/17 Anaerobic Culture - Preliminary, Resulted Result Diagram: 04/29/17 0539 04/29/17 0539 General Appearance: Alert, Oriented X3, Cooperative, No Acute Distress Extremities: Distal Pulses Palpable, No Compartment Syndrom Noted, Tenderness/ Swelling Noted Postop Sensory Motor: Distal Motor Intact, Movement in Fingers, Distal Sensation Intact, NVI Distally SURGICAL WOUND : Incision General Appearance: Sutures, Incision Healing, Area of Swelling, Erythemia Present & Warm (across whole dorsum of hand surrounding incision) Dressing & Drainage Status: Changed (dressings changed, splint reapplied), Serosanguineous Drainage (trace amounts) Wound Drainage Type: Two ender removed today Assessment & Plan Impression POD#2 right hand I&D Problems: Plan Patient currently takes hydrocodone/acetaminophen 10/325 3 times a day for neuropathy and other pain and is being followed by his primary care provider. Patient is requesting Percocet 7.5/325mg for his home medication. I thoroughly counseled and his on the wrists of acetaminophen overdose. They will keep a log of the tear pain medication to avoid exceeding the allotted amount of acetaminophen. This will likely mean Percocet 7.5/325 one tab Q6H at maximum which they verbalized understanding of. We are currently awaiting cultures. Patient states he will leave AMA now that his ender are out. He is hoping we can give him oral antibiotics or call them in later when the cultures come back. Weightbearing: Nonweightbearing with the right upper extremity. Wound care: Keep splint intact and dry. Analgesia: Addressed above Discharge plan: Discharge home in 1-2 days, pending culture results. Follow-up plan: Keep your appointment with Dr. Munroe on Sunday at 11:30am. VTE Prophylaxis: SCDs Resuscitation Status: CPR: Attempt Resuscitation Ayla White PA-C Apr 29, 2017 09:25
[2017-04-29] MEDS ORDERED: Sodium Chloride LOK Flush 10 mL Syringe IVFLUSH PRN ×2 (11:20)
[2017-04-29] MEDS ORDERED: CeFAZolin Inj 2 GM in Dextrose 5% 50 ML IV SCH (11:20)
[2017-04-29 11:22] VITALS: BP 164/107; PULSE 87; RESP 21; O2SAT 98
[2017-04-29] MEDS ORDERED: CeFAZolin Inj 2 GM in IV Premix 1 EACH IV SCH (11:30)
--- NOTE | 2017-04-29 12:17 | NUR ---
Social Work- Readiness for Discharge Data: EMR reviewed. Pt is on day 2 of hospitalization. Pt discussed in multidisciplinary rounds, pt will require IV abx at discharge. Orders received for IV abx Cefazalin q8. Home [facility] Order received. Written orders and prescription for medication also received. Pt is eager to return home today, threatened to leave AMA multiple times. SW met with pt and at bedside regarding home infusion. Infusion Choice List provided. Pt and have no agency preference, SW consulted rotating vendor calendar and made referral to [facility]. Spoke with electronic equipment repairer pharmacist Rosalina regarding discharge plan and opening of services. Faxed orders, rx, labs, and cultures. Rosalina confirms that her RN Lisa will be able to initiate therapy this evening and do training either at the hospital or meet at pt's home. Lisa will contact SOFTWARE APPLICATIONS SPECIALIST and also patient once the location of training is determined. Out of pocket cost estimate is likely to be less than $200 for each week of therapy, pt and updated at bedside. They are agreeable. Floor RN coordinating PICC placement and will run pt's first abx dose prior to discharge. MD, RN, pt/family, and [facility] all updated and agreeable to plan. SW will continue to follow. Assessment: Pt for whom IV Cefazolin q8 for 4 weeks is medically necessary Plan: Pt to d/c home today with [facility] IV abx services to begin this evening. Training to occur either at the hospital or at home this evening. Pt to receive PICC line this afternoon. MD, RN, pt/family, and [facility] all updated and agreeable to plan. SW will continue to follow. LESA Coats
[2017-04-29] MEDS ORDERED: RIFA150C2 PO (12:48)
[2017-04-29] MEDS ORDERED: CEFA1VIA3 IV (12:48)
--- NOTE | 2017-04-29 12:57 | PCM.DIMED ---
Discharge Instructions Date of Service Apr 29, 2017 Dates of Hospitalization Apr 27, 2017 at 01:21 Discharge Diagnosis Discharge Diagnosis # Acute postoperative right hand-wrist wound infection proximal portion of the 5th metacarpal over the carpometacarpal joint, present on admission. Ongoing - Post incision and drainage, irrigation and debridement right hand deep wound infection on 04/27/17 - Wound cultures growing MSSA # Acute sepsis, present on admission. Clinically resolved # Mild normocytic anemia, likely chronic, present on admission. # Type I diabetes, present on admission and ongoing # Right leg swelling more than left, present on admission and ongoing # Chronic diarrhea, present on admission. Ongoing Medication Instructions Additional med instructions Resume your home medications as before except stop Clindamycine. You will be on two new antibiotics (Cefazolin intravenously and Rifampin orally) to be taken for at least 4 more weeks. Diet Discharge Diet: Diabetic Activity Discharge Activity: No restrictions (except as instructed by your orthopedic/ hand surgeon) Call your provider Call your provider for: Fever or Chills, Shortness of breath, Bleeding, Vomitting, Excessive diarrhea Patient Instructions Patient Instructions Seek immediate medical attention if any new or worsening signs or symptoms occur. Follow-up plan 1. Followup with orthopedic surgery (Dr. Munroe) on Sunday at 11:30am, as previously scheduled. [address] [id number] 2. Followup with infectious disease clinic (Dr. Manolo Morales) on Sunday. Call to setup appointment [facility] [address] [place], [place] [id number] 3. Followup with your primary care provider within one week. Follow-up Provider: Wilmer Munroe DO Provider: Manolo Morales MD Mid-level Provider (F9): Jolanta Tobin Masoud Apr 29, 2017 12:57
--- NOTE | 2017-04-29 13:32 | PCM.DC.MED ---
Discharge Summary Date of Service Apr 29, 2017 Dates of Hospitalization Date of Hospital Admission Apr 27, 2017 at 01:21 Date of Discharge: Apr 29, 2017 Providers: Admitting Physician: Ventura Valadez MD Primary Care Physician: Jolanta Tobin DO Attending Physician: Jose Jameson Diagnosis at Time of Discharge Diagnosis at Time of Discharge # Acute postoperative right hand-wrist wound infection proximal portion of the 5th metacarpal over the carpometacarpal joint, present on admission. Ongoing - Post incision and drainage, irrigation and debridement right hand deep wound infection on 04/27/17 - Wound cultures growing MSSA # Acute sepsis, present on admission. Clinically resolved # Mild normocytic anemia, likely chronic, present on admission. # Type I diabetes, present on admission and ongoing # Right leg swelling more than left, present on admission and ongoing # Chronic diarrhea, present on admission. Ongoing Consultations 1. ID 2. Ortho Procedures XRay, CTs & MRIs Date of Service: 04/27/17 0848 PROCEDURE: X-RAY RIGHT HAND, MINIMUM THREE VIEWS ([id number]) IMPRESSION: Comminuted moderately displaced intra-articular fracture of the proximal fifth metacarpal is unchanged in overall alignment, status post interval placement of several percutaneous fixation pins. Dictated by: Max Soto M.D. on 04/27/2017 at 9:34 Approved by: Max Soto M.D. on 04/27/2017 at 9:38 Invasive Procedures DATE OF SURGERY: 04/27/2017 PREOPERATIVE DIAGNOSIS(ES): Postoperative right hand-wrist wound infection proximal portion of the 5th metacarpal over the carpometacarpal joint. POSTOPERATIVE DIAGNOSIS(ES): Postoperative right hand-wrist wound infection proximal portion of the 5th metacarpal over the carpometacarpal joint. PROCEDURE: Incision and drainage, irrigation and debridement right hand deep wound infection. CPT code 29360-47. Unplanned procedure during the postoperative period. Kamari Gallardo MD 04/27/17 2233 Other Diagnostics Date of Service: 04/27/17 0208 PROCEDURE: US VEINOUS LEG DUPLEX UNILATERAL, RIGHT IMPRESSION: No sonographic evidence for right lower extremity deep venous thrombosis. Dictated by: Max Soto M.D. on 04/27/2017 at 8:33 Approved by: Max Soto M.D. on 04/27/2017 at 8:35 Brief History As noted in H&P by Dr. Alvarado-December: Patient is a 41-year-old male with a history of diabetes type I, cellulitis, fibromyalgia, left testicular cancer and unconfirmed diagnosis of sarcoidosis presented to the emergency department complaining of right hand pain. Patient's right hand had a surgical repair of boxer fracture [address] Munroe. One week ago on, patient returned to the operating room and had pins placed. Since that time he had discontinued to become red and swollen and increasingly painful. He had follow-up appointments this week with the hand therapist who started him on clindamycin . He had one dose before coming to the emergency department. Previously had been on Keflex post surgery. The last dose of Keflex was 1 week ago. Patient states that he has been feeling worse since yesterday and has developed a fever with chills. Patient also has swelling in his right leg and states that it feels as if it is "on fire". At baseline he has bilateral painful neuropathy. Patient reports he has multiple sensitivities to metals but is unable to identify which metals. At baseline patient has significant GI symptoms including chronic diarrhea and pale-colored stool. He has an unconfirmed diagnosis of sarcoidosis. He has recently established with a primary care physician in hopes of a diagnosis. Patient denies nausea or vomiting, confusion, lightheadedness, chest pain Hospital Course # Acute Postoperative right hand-wrist wound infection proximal portion of the 5th metacarpal over the carpometacarpal joint, present on admission. Ongoing - Patient had orthopedic repair of boxer fracture 3 weeks ago with revision one week ago. Increasing pain and swelling since revision. - Post incision and drainage, irrigation and debridement right hand deep wound infection on 04/27/17 - Appreciate Ortho and ID consults. - Culture from surgical site growing MSSA - Blood cultures obtained before antibiotic administration in the emergency department but after patient had taken a dose of clindamycin at home with no growth to date - Patient had undergone at least one week of Keflex, and had one dose of clindamycin before the emergency department, 1 in the emergency department, and one dose of vancomycin and 1 dose of meropenem in the emergency department. - Per discussion with Dr. Morales on 04/29/17 patient started on IV Cefazolin 2gram q8h which will continued with home infusion upon discharge later today (06/05) - Antibiotics on discharge will include Cefazolin 2 gram IV q8h x 4 weeks and Rifampin 450mg PO BID x 4 weeks - PICC line placed on 04/29/17 prior to discharge - Patient cleared for d/c by ortho with plan followup by Dr. Munroe on Sunday # Acute sepsis, present on admission. - Clinically resolved - Patient presented tachycardic (113), fever (38.8C), and source of infection his right hand. - Antibiotics as noted above # Mild normocytic anemia, likely chronic, present on admission. - Stable. - Further followup and workup as outpatient # Type I diabetes, present on admission and ongoing - Continued with home dose Insulin # Right leg swelling more than left, present on admission and ongoing - No evidence of DVT on U/S # Chronic diarrhea, present on admission. Ongoing - Unclear etiology and per patient extensively worked up as outpatient already by day of discharge patient was threatening to leave AMA if not discharged home. He agreed to stay to have PICC line placed and receive his first dose of IV Cefazolin. Exam Vital Signs (Last) Date Time Temp Pulse Resp B/P Pulse Ox O2 Delivery O2 Flow Rate FiO2 04/29/17 11:22 36.7 87 21 164/107 98 Room Air 04/27/17 20:35 8 Exam Lungs: CTA bilat CV: RRR Abd: Soft, nt, nd, +bs Test 04/26/17 23:35 04/26/17 23:37 04/27/17 00:00 04/27/17 05:23 Urine Color [place] (YELLOW) Urine Appearance Clear (CLEAR,HAZY) Urine pH 5.5 (5.0-8.0) Urine Specific [place] 1.025 (1.003-1.035) Urine Protein >300mg/dL (NEG,TRACE) Urine Glucose (UA) Negativemg/dL (NEGATIVE) Urine Ketones Tracemg/dL (NEGATIVE) Urine Occult Blood Small (NEGATIVE) Urine Nitrite Negative (NEGATIVE) Urine Bilirubin Small (NEGATIVE) Urine Ictotest Positive (Negative) Urine Urobilinogen 1.0mg/dL (NORMAL) Urine Leukocyte Esterase Negative (NEGATIVE) Urine RBC 3-10/hpf (0-2) Urine WBC 0-5/hpf (0-5) Urine Epithelial Cells Occasional/hpf (NONE-MOD) Urine Crystals None seen (NONE SEEN) Urine Bacteria Few/hpf (NONE-FEW) Urine Hyaline Casts >20/lpf (NONE) Urine Granular Casts None seen (NONE SEEN) Urine Waxy Casts None seen (NONE SEEN) Urine Red Blood Cell Casts None seen (NONE SEEN) Urine White Blood Cell Casts None seen (NONE SEEN) Urine Mucus None seen (None Seen) Urine Trichomonas None seen (NONE SEEN) Urine Yeast None (NONE SEEN) Urinalysis Comment None Urine Culture Reflexed Not indicated Lactic Acid Level 1.6mmol/L (0.4-2.0) Total Bilirubin 1.1mg/dL (0.0-1.2) Aspartate Amino Transf (AST/SGOT) 14U/L (0-50) Alanine Aminotransferase (ALT/SGPT) 13U/L (0-44) Alkaline Phosphatase 99U/L (25-150) Total Protein 7.8g/dL (6.4-8.4) Albumin 3.9g/dL (3.4-5.0) Hemoglobin A1c 8.5% (4.8-5.6) Streptozyme 205.0IU/mL (0.0-200.0) Test 04/28/17 05:30 04/29/17 05:39 Neutrophils (%) (Auto) 62.4% (40-74) Lymphocytes (%) (Auto) 18.5% (14-46) Monocytes (%) (Auto) 17.7% (4-12) Eosinophils (%) (Auto) 1.2% (0-5) Basophils (%) (Auto) 0.1% (0-3) White Blood Count 6.9th/mm3 (3.8-10.1) Red Blood Count 3.45mil/mm3 (4.40-5.80) Hemoglobin 10.8g/dL (13.8-17.2) Hematocrit 31.9% (41.0-50.0) Mean Corpuscular Volume 92.5fL (81-100) Mean Corpuscular Hemoglobin 31.3pg (27.0-35.0) Mean Corpuscular Hemoglobin Concent 33.9% (32.0-37.0) Red Cell Distribution Width 13.1% (12.3-15.4) Platelet Count 181bil/L (150-400) Sodium Level 139mEq/L (134-144) Potassium Level 4.0mEq/L (3.5-5.2) Chloride Level 102mEq/L (97-108) Carbon Dioxide Level 21mmol/L (18-29) Blood Urea Nitrogen 9mg/dL (6-24) Creatinine 0.73mg/dL (0.76-1.27) Estimat Glomerular Filtration Rate 126mL/min (>59) Glucose Level 256mg/dL (60-99) Calcium Level 8.4mg/dL (8.5-10.1) Magnesium Level 1.6mg/dL (1.6-2.6) Troponin T 0.010ug/L (0.0-0.011) Procalcitonin 0.04ng/mL (0.00-0.08) Discharge Medications Discharge Medications Albuterol HFA (Proair HFA) 8.5 Gm Hfa.aer.ad 2 PUFFS INHALATION Q4H (Reported) Cefazolin Sodium (Cefazolin IV) 1 Gm Vial 2 GM IV Q8H Prescribed by: JOSE JAMESON MD Gabapentin (Gabapentin) 600 Mg Tablet 1,200 MG PO TID (Reported) Rifampin (Rifampin) 150 Mg Capsule 450 MG PO BID Prescribed by: JOSE JAMESON MD As needed ([humalog ]) 70/30 Unknown Dose BID PRN PRN blood glucose (Reported) Hydrocodone-Acetaminophen 10-325 mg (Hydrocodone-Acetaminophen 10-325 mg) 1 Each Tablet 1 TABLET PO Q6H PRN PRN For Pain (Reported) oxyCODONE-Acetaminophen 7.5-325 mg (oxyCODONE-Acetaminophen 7.5-325 mg) 1 Each Tablet 1 TAB PO Q4H PRN PRN For Pain (Reported) Additional med instructions Resume your home medications as before except stop Clindamycine. You will be on two new antibiotics (Cefazolin intravenously and Rifampin orally) to be taken for at least 4 more weeks. Followup Plan Disposition: Home with home infusion Follow-up plan 1. Followup with orthopedic surgery (Dr. Munroe) on Sunday at 11:30am, as previously scheduled. [address] [address] 2. Followup with infectious disease clinic (Dr. Manolo Morales) on Sunday. Call to setup appointment [facility] [address] [place] [address] 3. Followup with your primary care provider within one week. Discharge Diet: Diabetic Discharge Activity: No restrictions (except as instructed by your orthopedic/ hand surgeon) Patient Instructions Seek immediate medical attention if any new or worsening signs or symptoms occur. Follow-up Provider: Wilmer Munroe DO Provider: Manolo Morales MD Mid-level Provider: Jolanta Tobin DO Time spent 45 min copies to: Wilmer Munroe DO; Jolanta Tobin DO; Manolo Morales MD, Masoud Apr 29, 2017 13:32
--- NOTE | 2017-04-29 13:49 | DRSVH ---
PROCEDURE: X-RAY PICC LINE PLACEMENT BY NURSE ([id number]) INDICATIONS: 4 weeks of Abx needed for hand infx COMPARISON: None. FINDINGS: PICC was placed by the intravenous therapy team from the left side. Fluoroscopic spot kuldip m demonstrates tip of PICC in the superior vena cava above the right atrium. IMPRESSION: Tip of PICC lies within the superior vena cava. Dictated by: Tyson Antony M.D. on 04/29/2017 at 13:47 Approved by: Tyson Antony M.D. on 04/29/2017 at 13:47
[2017-04-29 16:28] VITALS: BP 135/87; PULSE 78; RESP 20; O2SAT 98
--- NOTE | 2017-04-29 17:03 | NUR ---
Discharge Pt discharged at approximately 1700 to home with . Pt given educational material for Cefazolin and Rifampin. Pt home health nurse present in room asking for copy of medication list. Copy made for home health nurse. Pt given educational material for PICC line, follow up appts, and care instructions included. Right hand IV DC'd by IV therapy. PICC placed on Left upper arm, wrapped and dated, C/D/I. Pt acknowledged and understood all information. Next dose to be taken of all medications clearly written. Pt walked to form door with at side.
--- NOTE | 2017-04-29 17:05 | NUR ---
Discharge Patient was discharged home with this afternoon. Patient given verbal and written home care instructions and agreed to understanding them and denied any further questions when asked. Patient had Picc line placed today for home antibiotic infusions provided by [facility]. financial service representative from [employer] [facility] was here and discussed Picc line care and instructed patient and his on giving infusions at home. Patient will follow up with surgeon on Sunday and Dr Morales next week. Prescription for oral antibiotic given.
[2017-04-30] MEDS ORDERED: RIFA300C4 PO (13:32)
== END 2017-04-29 16:48 | disposition home or self-care (01) | DRG 858 ==
LOC: SED 22:22 → OSC 04-27 01:21 → OBSVTOIN 04-27 01:21 → OSC 04-27 01:45
PROVIDERS: ADMIT Hospitalist; ATTEND Hospitalist
PROC: 0J9J0ZZ Drainage of Right Hand Subcutaneous Tissue and Fascia, Open Approach (ICD-10-PCS; principal; 2017-04-27 19:00)
DX: T81.4XXA Infection following a procedure, initial encounter (principal); E10.9 Type 1 diabetes mellitus without complications; Z79.4 Long term (current) use of insulin; D64.9 Anemia, unspecified; M79.89 Other specified soft tissue disorders; F17.210 Nicotine dependence, cigarettes, uncomplicated; G62.9 Polyneuropathy, unspecified; Z85.47 Personal history of malignant neoplasm of testis; K52.9 Noninfective gastroenteritis and colitis, unspecified

== ENCOUNTER 2017-05-15 07:25 | Emergency (ER) | payer OTHER ==
[~2017-05-15] VITALS: Ht 180.3 cm; Wt 125.0 kg
[~2017-05-15 07:25] MED LIST changes: +CEFA1VIA3 IV; -L. A1CAP7 PO; -OMEP20CA11 PO; +OXYC-465 PO; +RIFA300C4 PO
[2017-05-15] MEDS ORDERED: Glucagon 1 mg/mL Inj ONE (07:26)
[2017-05-15 07:37] VITALS: BP 119/82; PULSE 103; RESP 18; O2SAT 97
[2017-05-15] MEDS ORDERED: Famotidine Inj 20 MG in IV Premix 1 EACH IV ONE (07:45)
[2017-05-15] MEDS ORDERED: Glucagon 1 mg/mL Inj IV ONE (07:45)
--- NOTE | 2017-05-15 09:49 | ED.REPORT ---
HPI-Allergic Reaction Date of Service May 15, 2017 ED Provider: Travis Jimenes MD Patient is a 41 year old male who presents to the ED complaining of a possible allergic reaction onset 2 days ago. Pt broke his hand March 19 s/o he punched a table. He had a surgery with plates and screws by Dr. Luis on 03/29 but at his f/u appointment it was noted one of his screws was backing out. He had surgery again on 04/[address]. He then developed an infection which needed an I&D. He was admitted at this time. Pt receives home infusions of Cefazolin for MSSA via PICC with his last infusion at 0700 this morning. Since late Sunday/early Sunday morning, he has been experiencing swelling of his face, lips, hand, and fingers and has developed hives. He took Benadryl for his symptoms but feels like it is "stuck" in his throat. He denies SOB, nausea, vomiting, abdominal pain, throat swelling, tongue swelling, dysphagia, or any other symptoms. 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 Due to his neuropathy, spouse is concerned that the pt may not know if he was stung. She was not able to find a bee sting on him. He takes Rifampin daily. Nursing Notes Stated Complaint: HIVES,UNKNOWN ALLERGIC REACTION Chief Complaint: Allergic Reaction Nursing Notes Reviewed: Yes Allergies: Coded Allergies: yellow dye (Verified Allergy, Severe, Yellow dye in pills causes hives and rash, 03/23/17) pregabalin (Verified Allergy, Intermediate, Lesions and scabs to body, 04/26) Scheduled Albuterol HFA (Proair HFA) 8.5 Gm Hfa.aer.ad 2 PUFFS INHALATION Q4H Cefazolin Sodium (Cefazolin IV) 1 Gm Vial 2 GM IV Q8H Gabapentin (Gabapentin) 600 Mg Tablet 1,200 MG PO TID Rifampin (Rifampin) 300 Mg Capsule 300-600 MG PO BID TAKE ONE TAB (300 MG) DAILY X 28 DAYS AND, TAKE TWO TABS(600 MG) EVERY EVENING (qPM) X 28 DAYS. Scheduled PRN ([humalog ]) 70/30 Unknown Dose BID PRN PRN blood glucose Hydrocodone-Acetaminophen 10-325 mg (Hydrocodone-Acetaminophen 10-325 mg) 1 Each Tablet 1 TABLET PO Q6H PRN PRN For Pain oxyCODONE-Acetaminophen 7.5-325 mg (oxyCODONE-Acetaminophen 7.5-325 mg) 1 Each Tablet 1 TAB PO Q4H PRN PRN For Pain General Time Seen by MD: 07:39 Chief Complaint Allergic reaction Hx Obtained From: Patient, Spouse Arrived By: Walk-in Onset Occurred: 2 days ago Symptom Duration: Since onset Progression Since Onset: Gradually worsening Immunizations: Unknown Recent Healthcare: Recent doctor visit, Recent hospitalization Past Medical History Past Medical History Diabetes Mellitus Neuropathy Testicular Cancer Sarcoidosis Sleep apnea Peripheral neuropathy Fibromyalgia Reports: Asthma, GERD Reports: Thyroid disease Past Surgical History Right hand x2 Testicular surg Smoking History Current Every Day Smoker Social History CBC oil use Alcohol Use: Denies alcohol use Drug Use: THC Other Social History: Good social support, From out of town Ambulatory Status Independent Review of Systems Review of Systems Note: +facial swelling Ears / Nose / Throat: Denies: Throat swelling, Tongue swelling Respiratory: Denies: Shortness of breath GI: Denies: Abdominal pain, Dysphagia, Nausea, Vomiting Allergy / Immune: Reports: Hives Complete sys rev & neg: except as marked. Musculoskeletal: Reports: Extremity swelling Physical Exam Initial Vital Signs Vital Signs (First) Date Time Temp Pulse Resp B/P Pulse Ox O2 Delivery O2 Flow Rate FiO2 05/15/17 07:37 36.8 103 18 119/82 97 Room Air Initial VS: Reviewed, Vital signs abnormal Neurologic: Alert, Oriented, Nonfocal Psychiatric: Mood/affect normal, Behavior normal, Normal thought content General/Constitutional: Awake, Alert Respiratory / Chest: Atraumatic, Breath sounds NL, Breath sounds = bilat, No respiratory distress Cardiovascular: Heart rate NL, Regular rhythm, Heart sounds NL No peripheral edema Skin: Warm, Dry Rash / Lesion Notes: generalized urticaria especially around face. Head / Eyes: Atraumatic Eyelids swollen bilaterally. Abdomen: Atraumatic, Soft, Non-tender Wrist / Hand: No deformity Both hands swollen with minial urticaria Surgical wound to R hand clean and dry. No overt signs of infection. Re-Eval/Medical Decision Re-Evaluation/Progress #1: Time of Eval: 09:52 Re-Evaluation/Progress Note: Rechecked pt who is feeling slightly better. Discussed plan for consult with his physicians. Patient understands and agrees with plan. All questions addressed at this time. Re-Evaluation/Progress #2: Time of Eval: 10:38 Re-Evaluation/Progress Note: Discussed consult with Dr. Morales and plan for discharge. Patient understands and agrees with plan. All questions addressed at this time. Consultation : Referral / Consult Name: Manolo Morales MD Call Returned at: 10:21 Group Controller: Will see in office, Agrees with eval, Agrees with plan Note: Discussed pt's case. Dr. Morales suggests discontinuing both rifampin Ancef as Debbie at this time. He will arrange for a different antibiotic to be infused through the home infusion company today Counseled Regarding: Diagnosis, Need for follow-up, When/why to return to ED Discharge & Departure Primary Impression: Urticaria Additional Impression: Allergic reaction Encounter type: initial encounter Qualified Code: T78.40XA - Allergy, unspecified, initial encounter Disposition: Home Discharge Condition All VS Reviewed: Yes Condition: Stable Patient Instructions: General Allergic Reaction (ED) Additional Instructions: I believe that the symptoms you are experiencing is due to an allergic reaction , most likely caused by one of the antibiotics you are taking. I spoke with Dr. Morales who recommended that you discontinue both rifampin and cefazolin at this time. He will make a call to the infusion company and prescribe a different antibiotic. In the meantime, I recommend Benadryl 25-50 mg every 6 hours as needed for itch or rash. Follow up if symptoms are worsening. Referrals: Jolanta Tobin DO (PCP) Jose Attestation Portions of this note were transcribed by Ilya Wolf. I, Dr. Jimenes personally performed the history, physical exam and medical decision-making; I reviewed and confirmed the accuracy of the information in the transcribed note. Signed by: Jose Hurtado, 05/15/17 copies to: Jolanta Tobin Kirk H MD May 15, 2017 09:49 ILYA WOLF May 15, 2017 09:50
[2017-05-15 11:08] VITALS: BP 115/68; PULSE 92; RESP 16; O2SAT 97
== END 2017-05-15 11:10 | disposition home or self-care (01) ==
LOC: SED 07:25
DX: L50.0 Allergic urticaria (principal); J45.909 Unspecified asthma, uncomplicated; K21.9 Gastro-esophageal reflux disease without esophagitis; E11.40 Type 2 diabetes mellitus with diabetic neuropathy, unspecified; E07.9 Disorder of thyroid, unspecified; M79.7 Fibromyalgia; F17.200 Nicotine dependence, unspecified, uncomplicated; Z85.47 Personal history of malignant neoplasm of testis; Z87.828 Personal history of other (healed) physical injury and trauma; Z98.890 Other specified postprocedural states; Z88.8 Allergy status to other drugs, medicaments and biological substances; Z91.041 Radiographic dye allergy status
CPT/HCPCS: 96374; 96375; 99284; J1200; J1610; J3490